=== PATIENT | male | born 1955 | race Caucasian/White ===

== ENCOUNTER 2019-12-23 21:31 | Inpatient (IN) | payer OTHER, SELFPAY ==
--- NOTE | 2019-12-23 21:37 | XR_ITS ---
WS: [id number] XR chest 1V portable [id number] REASON FOR EXAM: cp FINDINGS: Bullous emphysematous changes are noted bilaterally. There is no pneumothorax seen. The heart is not enlarged there is arteriosclerotic changes present. There is no pneumonia, congestive heart failure, pleural effusion, pulmonary edema. 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
--- NOTE | 2019-12-23 21:38 | ECG_ITS ---
Measurements Intervals [place] Rate: 83 P: 51 MO: 156 QRS: -66 QRSD: 113 T: 118 QT: 363 QTc: 428 SINUS RHYTHM WITH SINUS ARRHYTHMIA PATTERN CONSISTENT WITH PULMONARY DISEASE INCOMPLETE RIGHT BUNDLE BRANCH BLOCK [90+ ms QRS DURATION, TERMINAL R IN V1/V2, 4 40+ ms S IN I/aVL/V4/V5/V6] LEFT ANTERIOR FASCICULAR BLOCK [QRS AXIS <= -45, QR IN I, RS IN II] SEPTAL MYOCARDIAL INFARCTION , OF INDETERMINATE AGE [40+ ms Q WAVE IN V1/V2] MODERATE T-WAVE ABNORMALITY, CONSIDER LATERAL ISCHEMIA [-0.1+ mV T WAVE IN I/ I/aVL/V5/V6] No previous ECG available for comparison Electronically Signed On 12-24-2019 17:03:33 CDT by Petar Chow M.D. [email or web address]
[2019-12-23 21:40] VITALS: BP 156/86; PULSE 112; RESP 22; TEMP 36.4; O2SAT 96; BMI 23.7
[2019-12-23 21:51] LABS: Basophils # 0.1 10^3/uL (0.0-0.1); Basophils % 0.8 %; Eosinophils # 0.3 10^3/uL (0.0-0.8); Eosinophils % 3.7 %; Hematocrit 47.6 % (42.0-52.0); Hemoglobin 15.6 g/dL (11.7-16.6); Lymphocytes # 2.4 10^3/uL (0.8-4.8); Lymphocytes % 26.3 %; Mean Corpuscular HGB Conc 32.8 g/dL (30.0-36.0); Mean Corpuscular Hemoglobin 32.8 pg (28.0-34.0); Mean Corpuscular Volume 100.2 fL (80-94); Mean Platelet Volume 10.3 fL (7.4-10.4); Monocytes # 0.8 10^3/uL (0.2-0.9); Neutrophils # 5.4 10^3/uL (1.8-7.7); Nucleated Red Blood Cells % 0 %; Platelet Count 276 10^3/cmm (130-400); Red Blood Count 4.75 10^6/uL (4.1-5.3); Red Cell Distribution Width 13.8 % (12.1-15.1)
[2019-12-23 22:00] LABS: INR 0.85 (0.8-1.2)
--- NOTE | 2019-12-23 22:00 | PC.NURSE ---
Patient is now pain free, notified alright to hold nitro unless pain comes back.
[2019-12-23 22:01] LABS: Partial Thromboplastin Time 25.7 SECONDS (23.9-36.7)
[2019-12-23 22:12] LABS: Troponin(5th) Baseline 65 ng/mL (0-15)
[2019-12-23 22:16] LABS: Alanine Aminotransferase 14 U/L (0-41); Albumin Level 4.4 g/dL (3.5-5.2); Alkaline Phosphatase 80 IU/L (40-130); Anion Gap 18.6 (5-19); Aspartate Amino Transferase 20 U/L (0-40); Blood Urea Nitrogen 26 mg/dL (8-23); Calcium 8.9 mg/dL (8.5-10.5); Carbon Dioxide 23 mmol/L (22-29); Chloride 98 mmol/L (98-107); Globulin 2.9 g/dL (1.3-4.6); Glomerular Filtration Rate 55.8 mL/min (90-130); Glucose 128 mg/dL (65-115); NT Pro B Type Natriuretic Pept 424 pg/mL (0-125); Osmolality Calculated 279 mOsm/kg (285-295); Potassium 4.6 mmol/L (3.5-5.1); Sodium 135 mmol/L (136-145); Total Bilirubin 0.3 mg/dL (0.15-1.2); Total Protein 7.3 g/dL (6.6-8.7)
[2019-12-23] MEDS: aspirin 325 mg Tablet PO (22:27)
[2019-12-24] VITALS (7 sets, daily range): BP systolic 104–126; BP diastolic 54–72; PULSE 16–81; RESP 11–74; TEMP 36.6–36.8; O2SAT 92–99
[2019-12-24 00:12] LABS: Troponin 5 2HR 98.46 ng/mL (0-15)
[2019-12-24 00:16] LABS: Troponin 5 2HR Delta 33.46 ABS# (0-10)
--- NOTE | 2019-12-24 00:19 | PC.NURSE ---
lab called critical 2 hour trop 98.46; 2 hour delta 33.46. notified dr. freeman
--- NOTE | 2019-12-24 00:58 | W.ED.CHESTPA ---
HPI - Chest Pain General: Chief Complaint: Chest Pain Stated Complaint: cp/high bp Time Seen by Provider: 12/23/19 21:35 History of Present Illness: HPI narrative: 64-year-old male with a distant history of coronary artery disease. He had an angioplasty at age 40. He also has diabetes. He presents with an episode of epigastric/right sided chest discomfort at home this evening. He thought it was indigestion, and took Gaviscon, which did not seem to improve his discomfort. He was mildly nauseated and diaphoretic. He was not significantly short of breath, but did complain of some mild shortness of breath. He still having some discomfort. MD complaint: chest pain and chest discomfort Onset (ago): hour(s) Timing of current episode: constant Prior episodes: Yes Onset: during rest Pain location: substernal and right chest Pain radiation: right arm Severity: moderate Quality: aching, heaviness and fullness Relieving factors: nothing Exacerbating factors: nothing Associated symptoms: Reports diaphoresis, dyspnea and nausea; Deny fever(s), leg edema, palpitations or vomiting Review of Systems Const: Reports: diaphoresis; Denies: fever(s) Eyes: Denies: change in vision or blurry vision ENMT: Denies: swelling of lips/tongue, post nasal drip or sinus pain Card: Reports: chest pain; Denies: palpitations, irregular heart rhythm, swelling of feet/ankles, dyspnea on exertion or orthopnea Resp: Reports: dyspnea; Denies: productive cough, non-productive cough or wheezing GI: Reports: nausea; Denies: vomiting : Denies: difficulty urinating, urinary urgency or hematuria Musc: Denies: neck pain, back pain, joint redness or joint warmth Skin/Breast: Denies: rash, pruritus or erythema Neuro: Denies: headache(s), dizziness or vertigo Psych: Denies: anxiety PFSH ED PFSH: Social History Smoking and tobacco status: current every day smoker Physical Exam Const: GENERAL APPEARANCE: well developed ORIENTATION/CONSCIOUSNESS: Yes oriented to person, Yes oriented to place and Yes oriented to time HENMT: COMMON NORMALS: normocephalic, external ears normal and Normal external nose present HEAD & SCALP: normocephalic FACE & SINUS: normal facial exam NOSE: Normal external nose present and No nasal discharge present EXTERNAL EAR: Yes external ears normal MOUTH: tongue normal Eye: COMMON NORMALS: Equal, round and reactive pupils present, EOMs intact bilaterally and conjunctivae normal EYELID: eyelids normal CONJUNCTIVA: Yes conjunctivae normal PUPIL: Yes Equal, round and reactive pupils present Neck/C-Spine: GENERAL: No tracheal deviation Chest: COMMONS NORMALS: normal inspection of the chest CHEST: No tenderness Resp: COMMON NORMALS: clear to auscultation bilaterally EFFORT & INSPECTION: No tachypneic, No respiratory distress, No retractions, No uses accessory muscles and No tracheal deviation AUSCULTATION: clear to auscultation bilaterally, no rhonchi, no wheezes and lung sounds not diminished Cardio: COMMON NORMALS: regular rate and regular rhythm RATE: regular rate RHYTHM: regular rhythm HEART SOUNDS: no murmurs PERIPHERAL PULSES: radial pulses present GI: INSPECTION: No abdominal distension AUSCULTATION: No Hyperactive bowel sounds present and No Hypoactive bowel sounds present PALPATION: No Guarding due to palpation present (GI) and No Rigid due to palpation PERCUSSION: no dullness to percussion and no tympanic to percussion Neuro: SENSORIUM/ORIENTATION: Yes oriented to person, Yes oriented to place and Yes oriented to time Psych: COMMON NORMALS: mental status grossly normal Skin: COMMON NORMALS: no rashes or lesions noted GENERAL SKIN EXAM: no rashes or lesions noted Course Vital Signs: Vital signs: Vital Signs Temperature 97.5 F L 12/23/19 21:40 Pulse Rate 112 H 12/23/19 21:40 Respiratory Rate 22 H 12/23/19 21:40 Blood Pressure 156/86 12/23/19 21:40 Pulse Oximetry 96 12/23/19 21:40 MDM - Chest Pain MDM Narrative: Medical decision making narrative: 64-year-old male with chest discomfort, mainly right side, which he says he experienced at age 40 with his heart attack. His EKG shows a sinus rhythm with incomplete right bundle branch block, Q wave in lead II, no other acute ST changes. His first troponin was mildly elevated, and second 1 increased to 100. His other laboratory is benign, save him mild elevation in creatinine at 1.3. He is received aspirin, Lovenox and Plavix. He was going to be given a nitroglycerin, but his pain resolved prior to the nitroglycerin being taken. Lab Data: Labs: Lab Results 12/23/19 12/23/19 12/23/19 Range/Units 21:45 21:45 21:45 WBC 9.0 (4.0-10.0) 10^3/ uL RBC 4.75 (4.1-5.3) 10^6/u L Hgb 15.6 (11.7-16.6) g/dL Hct 47.6 (42.0-52.0) % MCV 100.2 H (80-94) fL MCH 32.8 (28.0-34.0) pg MCHC 32.8 (30.0-36.0) g/dL RDW 13.8 (12.1-15.1) % Plt Count 276 (130-400) 10^3/c mm MPV 10.3 (7.4-10.4) fL Neut % (Auto) 60.0 % Lymph % (Auto) 26.3 % [place] % (Auto) 9.0 % Eos % (Auto) 3.7 % Baso % (Auto) 0.8 % Neut # (Auto) 5.4 (1.8-7.7) 10^3/u L Lymph # (Auto) 2.4 (0.8-4.8) 10^3/u L [place] # (Auto) 0.8 (0.2-0.9) 10^3/u L Eos # (Auto) 0.3 (0.0-0.8) 10^3/u L Baso # (Auto) 0.1 (0.0-0.1) 10^3/u L Nucleated RBC % (a uto) 0 % Nucleated RBCs # 0.0 /100WBC PT 11.90 (10.5-13.3) SECO NDS INR 0.85 (0.8-1.2) APTT 25.7 (23.9-36.7) SECO NDS Sodium 135 L (136-145) mmol/L Potassium 4.6 (3.5-5.1) mmol/L Chloride 98 (98-107) mmol/L Carbon Dioxide 23 (22-29) mmol/L Anion Gap 18.6 (5-19) BUN 26 H (8-23) mg/dL Creatinine 1.3 H (0.7-1.2) mg/dL GFR Calculation 55.8 L (90-130) mL/min Glucose 128 H (65-115) mg/dL Calculated Osmolal ity 279 L (285-295) mOsm/k g Calcium 8.9 (8.5-10.5) mg/dL Total Bilirubin 0.3 (0.15-1.2) mg/dL AST 20 (0-40) U/L ALT 14 (0-41) U/L Alkaline Phosphata se 80 (40-130) IU/L Troponin T Baselin e (0-15) ng/mL Troponin T 120 [place] (0-15) ng/mL Delta Troponin T (0-10) ABS# NT-Pro-B Natriuret Pep 424 H (0-125) pg/mL Total Protein 7.3 (6.6-8.7) g/dL Albumin 4.4 (3.5-5.2) g/dL Globulin 2.9 (1.3-4.6) g/dL 12/23/19 12/23/19 Range/Units 21:45 23:28 WBC (4.0-10.0) 10^3/ uL RBC (4.1-5.3) 10^6/u L Hgb (11.7-16.6) g/dL Hct (42.0-52.0) % MCV (80-94) fL MCH (28.0-34.0) pg MCHC (30.0-36.0) g/dL RDW (12.1-15.1) % Plt Count (130-400) 10^3/c mm MPV (7.4-10.4) fL Neut % (Auto) % Lymph % (Auto) % [place] % (Auto) % Eos % (Auto) % Baso % (Auto) % Neut # (Auto) (1.8-7.7) 10^3/u L Lymph # (Auto) (0.8-4.8) 10^3/u L [place] # (Auto) (0.2-0.9) 10^3/u L Eos # (Auto) (0.0-0.8) 10^3/u L Baso # (Auto) (0.0-0.1) 10^3/u L Nucleated RBC % (a uto) % Nucleated RBCs # /100WBC PT (10.5-13.3) SECO NDS INR (0.8-1.2) APTT (23.9-36.7) SECO NDS Sodium (136-145) mmol/L Potassium (3.5-5.1) mmol/L Chloride (98-107) mmol/L Carbon Dioxide (22-29) mmol/L Anion Gap (5-19) BUN (8-23) mg/dL Creatinine (0.7-1.2) mg/dL GFR Calculation (90-130) mL/min Glucose (65-115) mg/dL Calculated Osmolal ity (285-295) mOsm/k g Calcium (8.5-10.5) mg/dL Total Bilirubin (0.15-1.2) mg/dL AST (0-40) U/L ALT (0-41) U/L Alkaline Phosphata se (40-130) IU/L Troponin T Baselin e 65 H (0-15) ng/mL Troponin T 120 [place] 98.46 H (0-15) ng/mL Delta Troponin T 33.46 H* (0-10) ABS# NT-Pro-B Natriuret Pep (0-125) pg/mL Total Protein (6.6-8.7) g/dL Albumin (3.5-5.2) g/dL Globulin (1.3-4.6) g/dL Discharge Plan Discharge Patient Disposition: Placed in Observation Clinical Impression: Chest pain Qualifiers: Chest pain type: chest pain due to myocardial ischemia Ischemic chest pain type: unstable angina pectoris Qualified Code(s): I20.0 - Unstable angina Condition: Stable Referrals: Akiko Arnada PA [Primary Care Provider] - Coding Level of Care Code ED Supervisor [employer] for [facility] Fwd Exam Comprehensive
--- NOTE | 2019-12-24 01:00 | P.HP_ITS ---
Providers/Chief Complaint Primary Care Provider: Akiko Aranda Chief Complaint: cp/high bp History of Present Illness Jayden Baldwin is a 64 year old male who carries diagnosis of dyslipidemia, type 2 diabetes, came in with chief complaint of chest pain. Patient stated that at age 40 he had an OR, he kept driving for straight 10 days and started experiencing excruciating pressure-like chest discomfort, angiogram showed normal coronary vessels, he was put on Coumadin. He took Coumadin until he stopped 2 years ago. Recently he saw Dr. Chow to establish care, he started him on atorvastatin, stopped his Coumadin and initiated aspirin. Patient is stating that for last 2 to 3 weeks he has been experiencing epigastric discomfor t, this discomfort is more like burning sensation which would radiate towards his right shoulder, mostly happened at rest initially until today. He was sitting in his couch today when he started experiencing substernal chest discomfort which he would describe as pressure-like sensation radiating towards his right shoulder, he experienced diaphoresis without any nausea, vomiting or shortness of breath. He did not notice any fevers, chills, dysuria, diarrhea. He is denying orthopnea, PND, palpitations. 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 Diagnostics in the ER revealed normal hemodynamics with tachycardia, normal room air saturation Significant delta troponin, he is chest pain-free JEAN Lovenox full dose 1 dose given in the ER along loading dose of aspirin and Allison vix EKG showing flat T waves anterolateral leads, bifascicular block with T wave inversions in lead I aVL Review of Systems Const: Denies: fever(s), chills, body aches or fatigue Eyes: Denies: change in vision ENMT: Denies: throat pain Card: Reports: chest pain; Denies: palpitations, irregular heart rhythm, swelling of feet/ankles, dyspnea on exertion, orthopnea or leg pain with exertion Resp: Denies: dyspnea GI: Denies: abdominal pain or nausea : Denies: flank pain Musc: Denies: neck pain Skin/Breast: Denies: rash Neuro: Denies: headache(s) Psych: Denies: anxiety Endo: Denies: polyuria [place]/Lymph: Denies: easy bruising All/Imm: Denies: urticaria Medications/Allergies Allergies Allergy/AdvReac Type Severity Reaction Status Date / Time No Known Allergies Allergy Verified 12/23/19 21:39 PFSH Acute PFSH: Medical History (Updated 12/24/19 @ 01:49 by Adalgisa Washington MD) Dyslipidemia Smoker Smoker Type 2 diabetes mellitus Surgical History (Updated 12/24/19 @ 01:49 by Adalgisa Washington MD) H/O shoulder surgery H/O skin graft Family History (Updated 12/24/19 @ 01:49 by Adalgisa Washington MD) Denies family history of Hyperlipidemia Lung disease Hypertension Social History (Updated 12/24/19 @ 01:50 by Adalgisa Washington MD) Smoking and tobacco status: heavy tobacco smoker cigarettes [ Other cigarette details: 1.5 pack per day for last 40 years ] Alcohol intake: current Alcohol use comment: Occasional use of alcohol 2-3 drinks a week Substance/Drug Use: never Household members: significant other Housing: House Current occupational status: employed 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 Vitals/I&O/Wt Last Vital Signs Temp 97.5 F L 12/23/19 21:40 Pulse 112 H 12/23/19 21:40 Resp 22 H 12/23/19 21:40 BP 156/86 12/23/19 21:40 Pulse Ox 96 12/23/19 21:40 Weight last 48 hrs Weight 79.379 kg Physical Exam Narrative: EXAM NARRATIVE: Head to toe examination Patient sitting in his bed without any active discomfort saturating well on room air Normal hemodynamics S1, S2, mild signs of congestive heart failure with trace pedal edema Mild expiratory wheeze at the base otherwise lung auscultation is normal without adventitious sounds Skin grafting around hands and shoulder Abdomen soft nontender nondistended bowels are present Awake alert oriented x3 GCS 15 Neurologically nonfocal exam No active chest pain trace lower extremity edema EOMI, PERRLA Appropriate mood and affect Data : 12/23/19 21:45 12/23/19 21:45 A&P Assessment and plan (1) NSTEMI (non-ST elevated myocardial infarction): Status: Acute (2) Smoker: Status: Acute (3) JEAN (acute kidney injury): Status: Acute Additional A&P Information Nstemi Multiple risk factors of coronary disease, diabetes, dyslipidemia, age OR at age 40, without any history of CABG or stent placement, he was taken off Coumadin 2 years ago EKG showing T wave inversions lead I aVL, significant delta troponin ACS protocol, Lovenox full dose, patient has received aspirin and Plavix loading dose in the ER, Would continue aspirin, Plavix, Lovenox along high-dose statins, start lisinopril if creatinine is improving Get echo in the morning He will most likely need an angiogram Check TSH, lipid panel, drug screen To rule out PE will get d-dimer, would avoid giving contrast study now in case he goes for an angiogram next 48 hours JEAN with trace pedal edema BNP 424 Mild signs of CHF probably causing cardiorenal JEAN No significant fluid overload on clinical exam Hold Bunny Type 2 diabetes: Moderate sliding scale [id number] smoking history Counseled on smoking station and benefits on his health, patient stated understanding Full code No need of DVT prophylaxis as he is getting Lovenox full dose, Consistent carb diet Attestations Medical Necessity Statement*: Anticipating stay in the hospital cross more than 2 midnights currently needs management of non-ST segment elevation OR Time Spent in Patient Care: 50 Coding Level of Care Code Acute Health And Fitness Professor for edyta Adam Diagnoses NSTEMI (non-ST elevated myocardial infarction) I21.4 Smoker F17.200 JEAN (acute kidney injury) N17.9
--- NOTE | 2019-12-24 01:30 | PC.NURSE ---
Patient arrieved from ER via wheelchair. Patient ambulated from the bed with no assistance and Alert x3. Patient placed on telemetry and vitals obtained.
--- NOTE | 2019-12-24 01:37 | USCV_ITS ---
Jayden Baldwin Age: 64 Gender: M : 1955 Exam Date: 12/24/2019 07:28 Ordering Phys: Adalgisa Washington MD Technologist: Elizabeth Marie Exam Location: [facility] [place] Indication: NSTEMI BP: 110 / 61 HR: 68 Rhythm: Sinus Technical Quality: Adequate MEASUREMENTS (Male / Female) Normal Values 2D ECHO LV Diastolic Diameter PLAX 4.2 cm 4.2 - 5.9 / 3.9 - 5.3 cm LV Systolic Diameter PLAX 4.0 cm LV Chamber Size 5.3 cm IVS Diastolic Thickness 1.5 cm 0.6 - 1.0 / 0.6 - 0.9 cm IVS Systolic Thickness 1.2 cm LVPW Diastolic Thickness 2.6 cm 0.6 - 1.0 / 0.6 - 0.9 cm LVPW Systolic Thickness 2.2 cm RV Chamber Size 3.9 cm LVOT Diameter 2.1 cm LV Ejection Fraction 2D Teich 14.5 % LV Ejection Fraction MOD 2C 32.1 % LV Ejection Fraction 2C AL 32.8 % LA Diameter 5.1 cm LA Width 2.9 cm LA Height 4.8 cm RA Width 2.7 cm RA Height 3.9 cm M-MODE LV Diastolic Diameter MM 6.4 cm 4.2 - 5.9 / 3.9 - 5.3 cm LV Systolic Diameter MM 4.9 cm LV Ejection Fraction MM Teich 46.9 % IVS Diastolic Thickness MM 1.4 cm 0.6 - 1.0 / 0.6 - 0.9 cm IVS Systolic Thickness MM 1.8 cm LVPW Diastolic Thickness MM 0.9 cm 0.6 - 1.0 / 0.6 - 0.9 cm LVPW Systolic Thickness MM 1.2 cm Aortic Annulus Diameter 3.3 cm LA Ao Ratio MM 1.5 MV E Point Septal Separation 1.7 cm DOPPLER AV Peak Velocity 136.0 cm/s LVOT Peak Velocity 99.0 cm/s AV Area Cont Eq vti 2.5 cm squared AV Area Cont Eq pk 2.5 cm squared MV Area PHT 2.6 cm squared Mitral E to A Ratio 0.6 MV E' Velocity 6.0 cm/s Mitral E to MV E' Ratio 10.7 Mitral E to LV E' Lateral Ratio 10.7 Mitral E to LV E' Septal Ratio 10.7 TR Peak Velocity 254.0 cm/s TR Peak Gradient 25.8 mmHg TR Mean Velocity 149.3 cm/s TR Mean Gradient 9.7 mmHg TR Velocity Time Integral 61.0 cm TV Peak E Velocity 53.0 cm/s Right Atrial Pressure 3.0 mmHg Pulmonary Artery Systolic Pressu 28.8 mmHg PV Peak Velocity 68.0 cm/s RV Acceleration Time 0.2 s RV Ejection Time 0.3 s RV AcT/ET 0.5 FINDINGS Left Ventricle Normal left ventricular cavity size. Moderately decreased left ventricular systolic function. Left ventricular ejection fraction is estimated at 46 %. There is distal anterior and apical wall hypokinesis Grade I/IV diastolic dysfunction (abnormal relaxation filling pattern), normal to mildly elevated filling pressures. Right Ventricle The right ventricle is normal in size and function. Right Atrium The right atrium is normal in size. Left Atrium The left atrium is normal in size. Mitral Valve Structurally normal mitral valve without significant stenosis or prolapse. There is no mitral regurgitation. Aortic Valve Structurally normal aortic valve without significant sclerosis or stenosis. There is no aortic regurgitation. Tricuspid Valve Structurally normal tricuspid valve without significant stenosis or regurgitation. Pulmonary artery systolic pressure is normal. Pulmonic Valve Structurally normal pulmonic valve without significant stenosis. There is no pulmonic regurgitation. Pericardium Normal pericardium without effusion. Aorta Normal ascending aorta dimension. CONCLUSIONS 1-Normal left ventricular cavity size. Moderately decreased left ventricular systolic function. Left ventricular ejection fraction is estimated at 46 %. There is mid to distal anterior and apical wall hypokinesis. Grade I/IV diastolic dysfunction (abnormal relaxation filling pattern), normal to mildly elevated filling pressures. 2-There is no pericardial effusion. 3-No significant valve abnormalities. 4-Pulmonary artery systolic pressure is within normal limits. 5-Right atrial pressure is around 5 mm of mercury. 6-No significant change since the prior echocardiogram study of 12/22/2018. Adalgisa Chavez MD (Electronically Signed) Final Date: 24 December 2019 17:23 S
[2019-12-24 02:12] LABS: D Dimer 0.52 ug/mIFEU (0-0.59)
[2019-12-24 02:27] LABS: Chol HDL Ratio 3.61 mg/dL (1.0-5.00); Cholesterol 130 mg/dL (0-200); HDL Cholesterol 36 mg/dL (60-100); LDL Cholesterol Calculated 64 mg/dL (50-129); LDL HDL Ratio 1.78 RATIO (0.00-3.22); Thyroid Stimulating Hormone 2.13 uIU/mL (0.27-4.20); Triglycerides 150 mg/dL (0-150)
[2019-12-24 02:38] LABS: Amphetamines Screen Urine Negative (Negative); Barbiturates Screen Urine Negative (Negative); Benzodiazepines Screen Urine Negative (Negative); Cocaine Screen Urine Negative (Negative); Opiate Screen Urine Negative (Negative); PCP Screen Urine Negative (Negative); THC Screen Urine Negative (Negative)
[2019-12-24 03:03] LABS: Estmated Average Glucose 160; Hemoglobin A1C 7.2 % (4.0-6.0)
[2019-12-24 05:14] LABS: Basophils # 0.1 10^3/uL (0.0-0.1); Basophils % 0.7 %; Eosinophils # 0.4 10^3/uL (0.0-0.8); Eosinophils % 4.7 %; Hematocrit 43.7 % (42.0-52.0); Hemoglobin 14.3 g/dL (11.7-16.6); Lymphocytes # 2.3 10^3/uL (0.8-4.8); Lymphocytes % 30.9 %; Mean Corpuscular HGB Conc 32.7 g/dL (30.0-36.0); Mean Corpuscular Hemoglobin 32.4 pg (28.0-34.0); Mean Corpuscular Volume 98.9 fL (80-94); Mean Platelet Volume 10.5 fL (7.4-10.4); Monocytes # 0.6 10^3/uL (0.2-0.9); Monocytes % 8.5 %; Neutrophils # 4.1 10^3/uL (1.8-7.7); Neutrophils % 55.1 %; Nucleated Red Blood Cells % 0 %; Platelet Count 244 10^3/cmm (130-400); Red Blood Count 4.42 10^6/uL (4.1-5.3); Red Cell Distribution Width 13.7 % (12.1-15.1); White Blood Count 7.5 10^3/uL (4.0-10.0)
[2019-12-24 05:36] LABS: Blood Urea Nitrogen 31 mg/dL (8-23); Calcium 9.3 mg/dL (8.5-10.5); Carbon Dioxide 26 mmol/L (22-29); Chloride 101 mmol/L (98-107); Glomerular Filtration Rate 75.5 mL/min (90-130); Glucose 112 mg/dL (65-115); Osmolality Calculated 284 mOsm/kg (285-295); Sodium 138 mmol/L (136-145)
--- NOTE | 2019-12-24 06:04 | PC.NURSE ---
End of shift: Patient had a uneventful shift. Remains AxO x3 and no complaints of chest pain so far.
[2019-12-24 06:08] LABS: Glucose Point of Care 112 mg/dL (70-110)
--- NOTE | 2019-12-24 09:10 | PC.NURSE ---
Med rec obtained from patient. Patient reports taking 40 MG Atorvastatin daily. 0900 dose of 80 mg Atorvastatin clarified with Dr. Suazo. Physician instructed nurse to only administer 40 mg. Physician to change order.
[2019-12-24] MEDS: metoprolol succinate ER (24 HR) 25 mg Tablet 12.5 MG PO (09:15)
[2019-12-24] MEDS: clopidogrel 75 mg Tablet PO (09:20)
[2019-12-24] MEDS: aspirin 81 mg EC Tablet PO (09:20)
[2019-12-24] MEDS: enoxaparin 80 mg/0.8 mL Syringe SUBCUT ×2 (09:22→20:42)
[2019-12-24] MEDS: atorvastatin 40 mg Tablet PO (09:31)
[2019-12-24] MEDS: pneumococcal (23 valent) SDV 0.5 mL IM (09:32)
--- NOTE | 2019-12-24 09:58 | PC.CHAP ---
Pastoral Care Encounter/Spiritual Assessment Type of Contact [] Declined sheepskin pickler visit [] Patient/Family/Request visit [] Outpatient visit [] Follow-up visit [] Physician referral [] Code/Alert [x] Routine visit [] Staff referral [] Actively dying [] Patient sleeping [] Family support [] [] Out of room [] Palliative care [] [] Receiving care in room [] Pre-surgical visit [] Trauma [] Long length of stay [] ICU visit [] Other: Relational/Emotional Strength [] Patient feels connected with others/family/visitors/staff [] Distress [] Loneliness/isolation [] Abandonment Spirituality of Patient [] Person of Marialuisa [] Attends Zoroastrian of their Marialuisa [] Believes in Prayer [] Reads Bible or Sikh materials [] There are Spiritual issues to be addressed Traffic Sergeant Interventions [x] Prayer [] Active listening [] Non-anxious presence [] Spiritual/emotional support [] Crisis/trauma care [] Spiritual counseling [] Bereavement support [] Provided bereavement packet [] Provided Bible/devotional materials [] Provided toy/stuffed animal, coloring book to patient or family member [] Provided Communion [] Anointing/[facility] [] Salvation [x] Completed spiritual assessment [] Other: Impact on Illness or Injury [] Angry [] Fearful [] Anxious [] Often cries [] Exhaustion [] Unable to work [] Unable to attend protestant [] Unable to walk/stand [] Unable to read [] Unable to drive [] Unable to eat/drink [] Unable to sleep [] Unable to be with family [] Patient intubated [] Other: Summary Patient resting well. Patient enjoying breakfast Time spent with patient 10min
--- NOTE | 2019-12-24 10:51 | P.CONIM_ITS ---
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 After initial treatment for ACS chest pain resolved. According to the patient for the past few months he has been struggling with worsening of shortness of breath and heartburn-like symptoms. He did not pay much attention to it however when yesterday it became more constant and he experienced diaphoresis his girlfriend suggested him to come to the ER. Twelve-lead EKG was suggestive of incomplete right bundle branch block. Delta troponin was 33 points high with 6-hour troponin in 90s. Patient in the past has seen Dr. Petar Chow once nearly 1 year ago. According to him he has not followed up with Dr. Keller regularly and would like me to see him and take care of him he was given the choice that he can be transferred to Dr. Keller service. Currently he denies PND orthopnea presyncope or syncope. Meds/Allergies Home Medications and Allergies Home Medications Medication Instructions Recorded Confirmed Last Taken Type Trulicity SUBCUT DIRECTED 12/24/19 Unknown History aspirin 325 mg PO DAILY 12/24/19 12/24/19 Unknown History atorvastatin 40 mg PO QPM 12/24/19 12/24/19 Unknown History empagliflozin [Jardiance] 25 mg PO DAILY 12/24/19 12/24/19 Unknown History metformin 500 mg PO BID 12/24/19 12/24/19 Unknown History pioglitazone [Actos] 30 mg PO DAILY 12/24/19 12/24/19 Unknown History Allergies Allergy/AdvReac Type Severity Reaction Status Date / Time No Known Allergies Allergy Verified 12/23/19 21:39 Current Medications Current Medications Generic Name Dose Route Start Last Admin Trade Name Freq PRN Reason Stop Dose Admin Aspirin 81 mg 12/24/19 09:00 12/24/19 09:20 Aspirin Ec PO 81 mg DAILY CLAUDETTE Administration Atorvastatin Calcium 40 mg 12/24/19 09:30 12/24/19 09:31 Lipitor PO 40 mg DAILY CLAUDETTE Administration Clopidogrel Bisulfate 75 mg 12/24/19 09:00 12/24/19 09:20 Plavix PO 75 mg DAILY CLAUDETTE Administration Enoxaparin Sodium 80 mg 12/24/19 09:30 12/24/19 09:22 Lovenox SUBCUT 80 mg Q12H CLAUDETTE Administration Insulin Aspart 0 unit 12/24/19 08:00 12/24/19 08:06 Novolog SUBCUT Not Given WM&BEDTIME CLAUDETTE Protocol Metoprolol Succinate 12.5 mg 12/24/19 09:00 12/24/19 09:15 Toprol Xl PO 12.5 mg DAILY CLAUDETTE Administration PFSH Acute PFSH: Medical History (Updated 12/24/19 @ 11:59 by Adalgisa Chavez MD) Dyslipidemia Smoker Smoker Type 2 diabetes mellitus Surgical History H/O shoulder surgery H/O skin graft Family History Denies family history of Hyperlipidemia Lung disease Hypertension Social History Smoking and tobacco status: heavy tobacco smoker cigarettes [ Other cigarette details: 1.5 pack per day for last 40 years ] Alcohol intake: current Alcohol use comment: Occasional use of alcohol 2-3 drinks a week Substance/Drug Use: never Household members: significant other Housing: House Current occupational status: employed 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 NECK: No jugular vein distension. HEENT: No cyanosis. No icterus. No pallor. HEART: Regular S1 and S2. No murmur, rub or gallop. LUNGS: Mild crackles in the lower lobe bilaterally. ABDOMEN: Soft, nontender and nondistended. Positive bowel sounds. No guarding, rebound or tenderness. CENTRAL NERVOUS SYSTEM: Grossly nonfocal. EXTREMITIES: Lower extremities without edema bilaterally. Data Labs: Other Labs: Incomplete right bundle branch block. A&P Assessment and plan (1) NSTEMI (non-ST elevated myocardial infarction): Patient is high risk for acute coronary syndrome. His chest pain and initial cardiac markers are suggestive of non-ST elevation GA. We will therefore proceed with coronary angiogram tomorrow since he is stable. Continue aspirin statin beta-nirav and Plavix. Continue anticoagulation. Patient has been explained all risk benefit and alternative for the procedure. He would like to proceed with it. Will also obtain echocardiogram to assess LV function. Status: Acute (2) Smoker: Advised to quit smoking Status: Acute (3) Dyslipidemia: Patient is on statin, we will continue medicine Status: Acute (4) JEAN (acute kidney injury): Continue gentle hydration. Status: Acute Coding Level of Care Code New Pt Acute Client Service Supervisor for g Fwd Patient Type New History Detailed Exam Detailed Medical Decision Making Moderate Complexity Diagnoses NSTEMI (non-ST elevated myocardial infarction) I21.4 Smoker F17.200 Dyslipidemia E78.5 JEAN (acute kidney injury) N17.9
--- NOTE | 2019-12-24 10:53 | P.PN_ITS ---
Subjective Subjective: Interval history: His original pain episode has resolved. He is feeling better today. Has been having on and off pain for the last several weeks, but last night episode was the worst he has had. Denies association with movement. Denies cough. Denies changes with breathing. Reports initially thought maybe was some heartburn, but took Gaviscon and says normally this takes care of the heartburn, however, this pain did not respond at all. Vitals/I&O/Wt Last Vital Signs Temp 97.9 F 12/24/19 07:17 Pulse 81 12/24/19 07:17 Resp 28 H 12/24/19 07:17 BP 108/63 12/24/19 07:17 Pulse Ox 99 12/24/19 07:17 12/23/19 12/24/19 12/24/19 22:59 06:59 14:59 Intake Total 360 / 360 Output Total 350 / 350 1100 / 1100 Balance -350 / -350 -740 / -740 Weight last 48 hrs Weight 79.379 kg Physical Exam Const: COMMON NORMALS: no acute distress and patient oriented x3 OTHER: Pleasant, conversant. HENMT: COMMON NORMALS: oropharynx normal Neck/C-Spine: COMMON NORMALS: no JVD Resp: COMMON NORMALS: normal respiratory effort and clear to auscultation bilaterally AUSCULTATION: clear to auscultation bilaterally Cardio: COMMON NORMALS: no JVD, regular rhythm, S1 normal heart sound present, S2 normal heart sound present and No murmurs present (Cardio) RHYTHM: regular rhythm HEART SOUNDS: S1 normal heart sound present and S2 normal heart sound present GI: COMMON NORMALS: Normal to inspection, nondistended, normoactive bowel sounds present, Soft to palpation and non-tender PALPATION: Yes Soft to palpation Extremity: COMMON NORMALS: no joint enlargement and no pedal edema Neuro: COMMON NORMALS: patient oriented x3 and moves all extremities Skin: COMMON NORMALS: no rashes or lesions noted GENERAL SKIN EXAM: no rashes or lesions noted Data : 12/24/19 04:49 12/24/19 04:49 A&P Assessment and plan (1) NSTEMI (non-ST elevated myocardial infarction): Chest pain currently is gone, however, on and off episodes over the last several weeks, with the worst one last night lasting several hours. Not related to movement, breathing, thought may be heartburn, but was not at all improved by Gaviscon. Multiple coronary disease risk factors including current smoker. Troponin with significant delta up to 98 on 2-hour study. Will be seen by cardiology with regards to assessment for non-STEMI and likely progression of coronary disease. Reports he had an angiogram at age 40 at which time already required PTCA, although no stents were placed. TTE pending. Continue aspirin, beta-nirav, statin, Plavix, received loading dose last night. Continue Lovenox. Status: Acute (2) Smoker: Continue to encourage cessation. [id number] history. Status: Acute (3) JEAN (acute kidney injury): Improved. Creatinine down to 1. With comorbidities can suspect diabetic nephropathy. On admission some concern for cardiorenal syndrome. Status: Acute Additional A&P Information Type 2 diabetes: Moderate sliding scale Attestations Medical Necessity Statement*: Continue admission for assessment management of non-STEMI Coding Level of Care Code Acute Explosive Specialist for [facility] Fwd Diagnoses NSTEMI (non-ST elevated myocardial infarction) I21.4 Smoker F17.200 JEAN (acute kidney injury) N17.9
[2019-12-24 11:10] LABS: Glucose Point of Care 119 mg/dL (70-110)
[2019-12-24 16:19] LABS: Glucose Point of Care 110 mg/dL (70-110)
--- NOTE | 2019-12-24 19:30 | PC.NURSE ---
Received bedside report from ALEXANDER Thomas. Patient resting in bed. Denies chest pain or pressure at this time. Discussed plan. Patient verbalized complete understanding. Patient asked as to his home medications for DM. Instructed patient on insulin sliding scale for his DM control due to not having his home medications in our formulary. Also discussed not using his metformin due to scheduled [facility] procedure scheduled for 12/24. Patient verbalized complete understanding. Patient has been prepped for procedure by FRIDA Chen.
[2019-12-24 20:18] LABS: Glucose Point of Care 161 mg/dL (70-110)
[2019-12-25] VITALS (30 sets, daily range): BP systolic 92–133; BP diastolic 48–81; PULSE 64–86; RESP 13–32; TEMP 36.3–36.7; O2SAT 91–97
[2019-12-25 03:42] LABS: Basophils # 0.1 10^3/uL (0.0-0.1); Basophils % 0.7 %; Eosinophils # 0.2 10^3/uL (0.0-0.8); Eosinophils % 2.5 %; Hematocrit 50.4 % (42.0-52.0); Hemoglobin 16.4 g/dL (11.7-16.6); Lymphocytes # 2.2 10^3/uL (0.8-4.8); Lymphocytes % 24.9 %; Mean Corpuscular HGB Conc 32.5 g/dL (30.0-36.0); Mean Corpuscular Hemoglobin 32.9 pg (28.0-34.0); Mean Platelet Volume 10.6 fL (7.4-10.4); Monocytes # 0.6 10^3/uL (0.2-0.9); Monocytes % 7.3 %; Neutrophils # 5.6 10^3/uL (1.8-7.7); Neutrophils % 64.3 %; Nucleated Red Blood Cells % 0 %; Platelet Count 255 10^3/cmm (130-400); Red Blood Count 4.99 10^6/uL (4.1-5.3); Red Cell Distribution Width 13.7 % (12.1-15.1); White Blood Count 8.6 10^3/uL (4.0-10.0)
[2019-12-25 04:11] LABS: Anion Gap 17.6 (5-19); Blood Urea Nitrogen 22 mg/dL (8-23); Calcium 9.5 mg/dL (8.5-10.5); Carbon Dioxide 26 mmol/L (22-29); Chloride 101 mmol/L (98-107); Glomerular Filtration Rate 85.2 mL/min (90-130); Glucose 91 mg/dL (65-115); Osmolality Calculated 286 mOsm/kg (285-295); Potassium 4.6 mmol/L (3.5-5.1); Sodium 140 mmol/L (136-145)
[2019-12-25 06:43] LABS: Glucose Point of Care 103 mg/dL (70-110)
--- NOTE | 2019-12-25 07:03 | PC.NURSE ---
Patient wanting to have LHC done today. Does not understand why COVID 19 testing was done. Patient wanting to leave AMA if results and LHC not done this morning. Informed Dr Chavez of patient's concerns. Dr Chavez informed RN that patient could leave if not willing to wait for results.
--- NOTE | 2019-12-25 08:30 | XACV_ITS ---
Exam Room: 1 Ht: 183 cm Wt: 79 kg BSA: 2.01 m2 Gender: Male : 1955 Any Known Allergies: No known allergies Exam Priority: Routine Indication(s): - NSTEMI - Abnormal nuclear perfusion study Procedure(s): Procedure Description: Diagnostic procedure Procedure Description: PCI procedure Procedure Description: Drug Eluting Coronary Stent Procedure Description: PTCA Procedure Description: Coronary Angiography Diagnostic Cath Status: Urgent Diagnostic Findings LM has 0% stenosis. CX has 0% stenosis. pLAD: Mild 35% stenosis, TANI: 3 flow. First Obtuse Marginal Branch Segment: Severe 85% stenosis, TANI: 3 flow. pRCA: Severe 75% stenosis, TANI: 3 flow. mRCA to dRCA: Severe 75% stenosis, TANI: 3 flow. Coronary angiography shows left dominance. PCI Status: Urgent PCI Indication: NSTE - ACS Interventional Findings First Obtuse Marginal Branch Segment: 85% stenosis treated with AB MINI TREK 2.00X8 RX BALLOON and MDJennifer Burks RADU 3.0X12 JAD. 0% residual stenosis, TANI: 3 flow. Conclusions There is severe coronary artery disease with two vessel disease. First Obtuse Marginal Branch Segment was treated with Balloon and Drug Eluting Stent. Recommendations 1-Return to inpatient for close monitoring and routine cath care 2-Risk factor modification for secondary prevention 3-Statin and aspirin 81 mg life--long, if tolerated 4-Continue Plavix 75mg p.o. daily for at least one year. We will assess at the end of one year again to continue if further or not 5-Continue optimal medical management 6-Follow up with Dr. Chavez in four weeks and your primary care in 10 days . Interventional RX Recommendation: PCI w/o planned CABG Diagnostic RX Recommendation: PCI w/o planned CABG Pressures Phase:Rest AO : 90 mmHg / 61 mmHg ( 74 mmHg ) @ 7:27:00 AM 91 mmHg / 60 mmHg ( 75 mmHg ) @ 7:29:00 AM 95 mmHg / 61 mmHg ( 77 mmHg ) @ 7:32:00 AM 91 mmHg / 59 mmHg ( 74 mmHg ) @ 7:34:00 AM 103 mmHg / 59 mmHg ( 76 mmHg ) @ 7:41:00 AM 89 mmHg / 57 mmHg ( 72 mmHg ) @ 7:55:00 AM Clinical Evaluation EBL: 5mL-10mL Procedural Details Procedure Consent Obtained. Current Diagnosis : NSTEMI. Pre-Procedure Time Out. Identified patient by full name and date of as verbalized by the patient/guarantor. Does the consent match the physician's order: Yes. Accurate & Complete Informed Consent: Yes. Inpatient/Outpatient History & Physical on Chart: Yes. If H&P is completed, is and addenduem needed: No; If yes, is the addendum complete: N/A Emergent; Informed Consent not obtained due to time critical life threat. Relevant Radiology Images available: Yes. The risks, benefits, and alternatives of sedation and/or procedure were discussed by physician. The patient agrees to continue. Procedure started. [facility] Clinical Fraility Score: 3: Managing Well. Newspaper Vendor Indications: ACS <= 24 hours. Chest Pain Symptom Assessment: Typical Angina Symptoms. Cardiovascular Instability: No. Correct patient, site and procedure confirmed by cath team. Current diagnosis: NSTEMI. PERRLA. Strong, equal hand supervisor looping bilaterally. Lungs clear x 5 lobes. IV Site on Arrival: 20 gauge in the left forearm. IV Fluids: 0.9% NaCl at KVO. 200 mL infused prior to catheterization laboratory technician. Pre Procedural Pulses: bilateral dorsalis pedis was 2+. Pre Procedural Pulses: bilateral posterior tibial was 2+. Pre Procedural Pulses: bilateral radial was 3+. Oxygen started at 2liters/min via nasal canula. right groin was prepped with chloroprep then draped in the usual sterile fashion. right radial was prepped with chloroprep then draped in the usual sterile fashion. Physician notified. Patient's family unavailable due to current Covid-19 restrictions. Equipment: 6F - Radial. Cardiac Cath Pack. ACIST Manifold Kit Model BT 2000. Heparinized Saline (2 units/mL), 1000 mL bag. Baseline sample Acquired. HR: 72 BPM. Physician arrived. Physician scrubbed in. Immediate Pre-Procedure Time Out. Correct Patient: Yes; Correct Procedure: Yes; Correct Site: N/A Correct Patient Position: Yes; Correct Supplies: Yes; Dried Flammable Prep: Yes Blood Products Available: N/A;. Lidocaine 1% infiltrated to the right radial. Arterial access obtained. A 5 danish TIG catheter in over wire. Multiple views taken of left coronary artery. Catheter redirected to the RCA. Multiple views taken of right coronary artery. Physician review of cine films. Inventory Added: [place] Guidewire. Inventory Added: Endoflator. Catheter removed over the exchange wire. 6 danish XB 3.5 guide catheter was inserted over the wire. [place] guidewire was advanced through the guide catheter to lesion in the Ostial OM. Inflation number : 1 A AB MINI TREK 2.00X8 RX BALLOON was prepped and advanced across the 1st Ob Summer , then inflated to 12 DEBRA for 0:15 seconds. Inflation number: 2 The AB MINI TREK 2.00X8 RX BALLOON was reinflated across the 1st Ob Summer, to 20 DEBRA for 0:29 seconds. Inflation number: 3 The AB MINI TREK 2.00X8 RX BALLOON was reinflated across the 1st Ob Summer, to 14 DEBRA for 0:09 seconds. Inflation number: 4 The AB MINI TREK 2.00X8 RX BALLOON was reinflated across the 1st Ob Summer, to 18 DEBRA for 0:08 seconds. Results checked. Balloon out. Inflation Number : 5 A MDT R RADU 3.0X12 JAD -Lot Number# [id number] was prepped and advanced across the 1st Ob Summer. The stent was deployed at 12 DEBRA for 0:23 seconds. Exp. 08/07/2021. Stent balloon and wire out. Guide catheter out. TR band placed. Hemostasis obtained. Post Procedure: Pulses reassessed and unchanged. PERRLA. Strong, equal hand supervisor looping bilaterally. No VTE prophylaxis required. Total IV fluids: 65 mL. Medication's Wasted: Heparin = 1000 mg. Medication's Wasted: Lidocaine 1% = 16 mL. Medication's Wasted: Nitro = 49.8 mg. A TR Band was successful obtaining hemostatsis at the Right Radial artery insertion site. PCI Indication: NSTE. Post-op diagnosis: 2 vessel CAD. Complications: none. Estimated blood loss: 5mL-10mL. Procedure completed. Patient transferred by wheelchair to 1st floor. Vital chart was stopped. Site: Right Radial artery Sheath Size: 6 Fr Hemostasis Method: TR Band Hemostasis Success: Successful Procedure Medications Start: 12:19 PM Stop: 12:19 PM Medication: Versed Amount: 1 mg Route: I.V. Start: 12:20 PM Stop: 12:20 PM Medication: Fentanyl Amount: 50 mcg Route: I.V. Start: 12:20 PM Stop: 12:20 PM Medication: Versed Amount: 1 mg Route: I.V. Start: 12:24 PM Stop: 12:24 PM Medication: Nitrogylcerin Amount: 200 mcg Route: I.A. Start: 12:40 PM Stop: 12:40 PM Medication: Versed Amount: 1 mg Route: I.V. Start: 12:41 PM Stop: 12:41 PM Medication: Fentanyl Amount: 25 mcg Route: I.V. Start: 1:02 PM Stop: 1:02 PM Medication: Plavix Amount: 300 mg Route: P.O. I, the attending physician, have reviewed and verified all procedure medications. Yes, all medications given per verbal order History/Risk Factors Hypertension: Yes Dyslipidemia: Yes Diabetic Therapy: Insulin Peripheral Arterial Disease (PAD): No Myocardial Infarction (MT): Yes Obesity: No Renal Disease: No Tobacco Use: Current/Recent(w/in 1 year) Prior Interventions PCI: No CABG: No Valve Surgery: No Report Signatures Finalized by:Adalgisa Chavez MD on 01/07/2020 6:50:45 PM
[2019-12-25] MEDS: metoprolol succinate ER (24 HR) 25 mg Tablet 12.5 MG PO (09:01)
[2019-12-25] MEDS: diphenhydrAMINE 50 mg Capsule PO (09:01)
[2019-12-25] MEDS: atorvastatin 40 mg Tablet PO (09:01)
[2019-12-25] MEDS: clopidogrel 75 mg Tablet PO (09:01)
[2019-12-25] MEDS: aspirin 81 mg EC Tablet PO (09:02)
[2019-12-25] MEDS: enoxaparin 80 mg/0.8 mL Syringe SUBCUT (09:05)
[2019-12-25] MEDS: sodium chloride 0.9% 1,000 ML 50 ML IV (09:05)
--- NOTE | 2019-12-25 09:52 | PC.RESP ---
SMOKING CESSATION INFORMATION SENT TO PATIENT.
--- NOTE | 2019-12-25 10:53 | P.PN_ITS ---
Subjective Subjective: Interval history: States he is doing alright. Denies chest pain. Vitals/I&O/Wt Last Vital Signs Temp 98.1 F 12/25/19 10:47 Pulse 65 12/25/19 10:47 Resp 14 12/25/19 10:47 BP 109/67 12/25/19 10:47 Pulse Ox 94 12/25/19 10:47 12/24/19 12/25/19 12/25/19 22:59 06:59 14:59 Intake Total 500 / 980 600 / 1580 Output Total 1550 / 3300 1075 / 4375 Balance -1050 / -2320 -475 / -2795 Weight last 48 hrs Weight 79.379 kg Physical Exam Const: COMMON NORMALS: no acute distress and patient oriented x3 HENMT: COMMON NORMALS: oropharynx normal Neck/C-Spine: COMMON NORMALS: no JVD Resp: COMMON NORMALS: normal respiratory effort and clear to auscultation bilaterally AUSCULTATION: clear to auscultation bilaterally Cardio: COMMON NORMALS: no JVD, regular rhythm, S1 normal heart sound present, S2 normal heart sound present and No murmurs present (Cardio) RHYTHM: regular rhythm HEART SOUNDS: S1 normal heart sound present and S2 normal heart sound present GI: COMMON NORMALS: Normal to inspection, nondistended, normoactive bowel sounds present, Soft to palpation and non-tender PALPATION: Yes Soft to palpation Extremity: COMMON NORMALS: no joint enlargement and no pedal edema Neuro: COMMON NORMALS: patient oriented x3 and moves all extremities Skin: COMMON NORMALS: no rashes or lesions noted GENERAL SKIN EXAM: no rashes or lesions noted Data : 12/25/19 03:05 12/25/19 03:05 A&P Assessment and plan (1) NSTEMI (non-ST elevated myocardial infarction): Coronary angiography after COVID19 testing available today. Chest pain currently is gone, however, on and off episodes over the last several weeks, with the worst one last night lasting several hours. Not related to movement, breathing, thought may be heartburn, but was not at all improved by Gaviscon. Multiple coronary disease risk factors including current smoker. Troponin with significant delta up to 98 on 2-hour study. Will be seen by cardiology with regards to assessment for non-STEMI and likely progression of coronary disease. Reports he had an angiogram at age 40 at which time already required PTCA, although no stents were placed. TTE pending. Continue aspirin, beta-nirav, statin, Plavix, received loading dose last night. Continue Lovenox. Status: Acute (2) Smoker: Continue to encourage cessation. [id number] history. Status: Acute (3) JEAN (acute kidney injury): Improved. Creatinine down to 1. With comorbidities can suspect diabetic nephropathy. On admission some concern for cardiorenal syndrome. Status: Acute Additional A&P Information Type 2 diabetes: Moderate sliding scale Attestations Medical Necessity Statement*: Continue admission for assessment and management of NSTEMI. Coding Level of Care Code Acute [employer] Principal Solution Specialist for [facility] Jair Diagnoses NSTEMI (non-ST elevated myocardial infarction) I21.4 Smoker F17.200 JEAN (acute kidney injury) N17.9
[2019-12-25 10:59] LABS: Glucose Point of Care 105 mg/dL (70-110)
--- NOTE | 2019-12-25 11:12 | PC.CHAP ---
Pastoral Care Encounter/Spiritual Assessment Type of Contact [] Declined sculpture conservator visit [] Patient/Family/Request visit [] Outpatient visit [] Follow-up visit [] Physician referral [] Code/Alert [] Routine visit [] Staff referral [] Actively dying [] Patient sleeping [] Family support [] [] Out of room [] Palliative care [] [] Receiving care in room [] Pre-surgical visit [] Trauma [] Long length of stay [] ICU visit [X] Other: Isolation Relational/Emotional Strength [] Patient feels connected with others/family/visitors/staff [] Distress [] Loneliness/isolation [] Abandonment Spirituality of Patient [] Person of [place] [] Attends Pentecostalism of their [place] [] Believes in Prayer [] Reads Bible or Episcopalian materials [] There are Spiritual issues to be addressed Cart Driver Interventions [] Prayer [] Active listening [] Non-anxious presence [] Spiritual/emotional support [] Crisis/trauma care [] Spiritual counseling [] Bereavement support [] Provided bereavement packet [] Provided Bible/devotional materials [] Provided toy/stuffed animal, coloring book to patient or family member [] Provided Communion [] Anointing/[place] [] Salvation [] Completed spiritual assessment [] Other: Impact on Illness or Injury [] Angry [] Fearful [] Anxious [] Often cries [] Exhaustion [] Unable to work [] Unable to attend yarsanism [] Unable to walk/stand [] Unable to read [] Unable to drive [] Unable to eat/drink [] Unable to sleep [] Unable to be with family [] Patient intubated [] Other: Summary Isolation Time spent with patient 5 mins
--- NOTE | 2019-12-25 13:09 | P.PN_ITS ---
Subjective Subjective: Interval history: Patient underwent coronary angiogram. He was found to have chronically occluded LAD reconstitute in retrograde fashion from circumflex which is dominant and large vessel. Obtuse marginal 1 which is moderate size and caliber vessel had highly calcified 90% stenosis treated with balloon angioplasty followed by single drug-eluting stent. It was a culprit vessel. RCA is nondominant with 50 to 60% proximal stenosis. Vitals/I&O/Wt Last Vital Signs Temp 98.1 F 12/25/19 10:47 Pulse 65 12/25/19 10:47 Resp 14 12/25/19 10:47 BP 109/67 12/25/19 10:47 Pulse Ox 94 12/25/19 10:47 12/24/19 12/25/19 12/25/19 22:59 06:59 14:59 Intake Total 500 / 980 600 / 1580 Output Total 1550 / 3300 1075 / 4375 Balance -1050 / -2320 -475 / -2795 Weight last 48 hrs Weight 175 lb Physical Exam Narrative: EXAM NARRATIVE: GENERAL: Patient is alert, awake and oriented x3. NECK: No jugular vein distension. HEENT: No cyanosis. No icterus. No pallor. HEART: Regular S1 and S2. No murmur, rub or gallop. LUNGS: Mild crackles in the lower lobe bilaterally. ABDOMEN: Soft, nontender and nondistended. Positive bowel sounds. No guarding, rebound or tenderness. CENTRAL NERVOUS SYSTEM: Grossly nonfocal. EXTREMITIES: Lower extremities without edema bilaterally. Data : 12/25/19 03:05 12/25/19 03:05 A&P Assessment and plan (1) NSTEMI (non-ST elevated myocardial infarction): Patient underwent coronary angiogram for non-ST elevation ID. He was found to have chronically occluded LAD reconstitute in retrograde fashion from circumflex which is dominant and large vessel. Obtuse marginal 1 which is moderate size and caliber vessel had highly calcified 90% stenosis treated with balloon angioplasty followed by single drug-eluting stent. It was a culprit vessel. RCA is nondominant with 50 to 60% proximal stenosis. Continue aspirin statin beta-nirav. Follow-up with cardiology in 7 days. Status: Acute (2) Smoker: Advised to quit smoking Status: Acute (3) Dyslipidemia: Continue statin Status: Acute (4) JEAN (acute kidney injury): Resolved. Creatinine is normal today. Status: Acute (5) CHF (congestive heart failure): Well compensated. LV dysfunction with moderately depressed LV function 46%. Status: Acute Attestations Medical Necessity Statement*: Patient require continuation hospitalization for post PCI care. Coding Level of Care Code Established Pt Acute Obiee Lead Developer for [facility]g Fwd Patient Type Established History Expanded Problem Focused Exam Expanded Problem Focused Medical Decision Making Moderate Complexity Diagnoses NSTEMI (non-ST elevated myocardial infarction) I21.4 Smoker F17.200 Dyslipidemia E78.5 JEAN (acute kidney injury) N17.9 CHF (congestive heart failure) I50.9
[2019-12-25 16:35] LABS: Glucose Point of Care 152 mg/dL (70-110)
--- NOTE | 2019-12-25 17:41 | PC.NURSE ---
TR band off at 1610. Altogether, 15 ml of air removed slowly. Patient tolerated well. 2x2 and tegaderm placed, CDI, incision asymptomatic. Nurse to continue to monitor.
--- NOTE | 2019-12-25 18:22 | PC.NURSE ---
mixing and dispensing supervisor called to notify that COVID test came back negative.
--- NOTE | 2019-12-25 18:44 | PC.NURSE ---
Stop IVF per Dr. Chavez verbal order.
--- NOTE | 2019-12-25 18:47 | PC.NURSE ---
Received bedside report from ALEXANDER Thomas. Patient resting in bed talking on phone. Discontinued fluids per Dr Chavez. Dr Chavez in to see patient. discussed procedure outcomes with patient. Patient s/p [facility] with right radial access. TR band has been removed and dressing in place remains c,d,i. Instructed patient on medication changes, site care restrictions and potential for discharge in am. Patient expressed complete understanding.
[2019-12-25 21:03] LABS: Glucose Point of Care 117 mg/dL (70-110)
[2019-12-26 03:33] VITALS: BP 120/75; PULSE 94; RESP 15; TEMP 36.5; O2SAT 95
[2019-12-26 05:37] LABS: Basophils % 0.6 %; Eosinophils # 0.2 10^3/uL (0.0-0.8); Eosinophils % 2.1 %; Hematocrit 49.9 % (42.0-52.0); Hemoglobin 16.5 g/dL (11.7-16.6); Lymphocytes # 1.4 10^3/uL (0.8-4.8); Mean Corpuscular HGB Conc 33.1 g/dL (30.0-36.0); Mean Corpuscular Hemoglobin 32.4 pg (28.0-34.0); Mean Platelet Volume 10.4 fL (7.4-10.4); Monocytes # 0.7 10^3/uL (0.2-0.9); Monocytes % 9.1 %; Neutrophils # 4.9 10^3/uL (1.8-7.7); Neutrophils % 67.8 %; Nucleated Red Blood Cells % 0 %; Platelet Count 248 10^3/cmm (130-400); Red Blood Count 5.09 10^6/uL (4.1-5.3); Red Cell Distribution Width 13.2 % (12.1-15.1); White Blood Count 7.2 10^3/uL (4.0-10.0)
[2019-12-26 05:59] LABS: Anion Gap 18.3 (5-19); Blood Urea Nitrogen 20 mg/dL (8-23); Calcium 9.9 mg/dL (8.5-10.5); Carbon Dioxide 24 mmol/L (22-29); Chloride 100 mmol/L (98-107); Glomerular Filtration Rate 97.6 mL/min (90-130); Glucose 110 mg/dL (65-115); Osmolality Calculated 283 mOsm/kg (285-295); Potassium 4.3 mmol/L (3.5-5.1); Sodium 138 mmol/L (136-145)
[2019-12-26 08:00] VITALS: BP 129/73; PULSE 71; RESP 15; TEMP 36.6; O2SAT 96
[2019-12-26 08:48] LABS: Glucose Point of Care 121 mg/dL (70-110)
[2019-12-26] MEDS: atorvastatin 40 mg Tablet PO (09:09)
[2019-12-26] MEDS: aspirin 81 mg EC Tablet PO (09:09)
[2019-12-26] MEDS: metoprolol succinate ER (24 HR) 25 mg Tablet 12.5 MG PO (09:10)
[2019-12-26] MEDS: clopidogrel 75 mg Tablet PO (09:10)
--- NOTE | 2019-12-26 12:57 | PM.DCS ---
Discharge Providers Date of Admission: 12/24/19 01:22 Date of Discharge: December 26, 2019 Attending Provider at Admission: Adalgisa Washington MD Attending Provider at Discharge: Yovani Dumont Primary Care Provider: Akiko Aranda Diagnoses at Discharge Discharge Diagnosis (1) NSTEMI (non-ST elevated myocardial infarction): Status: Acute (2) Smoker: Status: Acute (3) Dyslipidemia: Status: Acute (4) JEAN (acute kidney injury): Status: Acute (5) CHF (congestive heart failure): Status: Acute Reason for Visit Reason for Visit: cp/high bp Hospital Course Hospital Course: Pleasant 64-year-old gentleman with history of coronary disease, angioplasty at age 40, current smoker, with HLD, diabetes was admitted for assessment management after presenting with recurrent episodes of chest pain, and persistent episode on the day of admission, more severe than others, found to be in non-STEMI on presentation, due to which required assessment by coronary angiography. Mild acute kidney injury on presentation improved. He was tested for COVID-19, found to be negative. Subsequently coronary angiography with finding of chronically occluded LAD, reconstituting in retrograde fashion from circumflex which is dominant and large vessel. OM1, moderate in size and caliber, had highly calcified 90% stenosis which was treated with balloon angioplasty and JAD. After admission for remainder hospitalization he has been feeling well. After the procedure she is feeling great and wanting to return home. He is having no chest pain. Access site is good. He will need follow-up with cardiology in office in 7 days for access site check, renal function check, follow-up with PCP, and then cardiology again in 8-12 weeks. Of note, he does get bothered sometimes by leg cramping at night, please revisit with him during outpatient visit. It does sound like magnesium deficiency may be a culprit and he takes a supplement, however, consider additional investigation. Please continue to assist and encourage him to quit smoking. Physical Exam Const: COMMON NORMALS: no acute distress and patient oriented x3 OTHER: Pleasant, conversant. HENMT: COMMON NORMALS: oropharynx normal Neck/C-Spine: COMMON NORMALS: no JVD Resp: COMMON NORMALS: normal respiratory effort and clear to auscultation bilaterally AUSCULTATION: clear to auscultation bilaterally Cardio: COMMON NORMALS: no JVD, regular rhythm, S1 normal heart sound present, S2 normal heart sound present and No murmurs present (Cardio) RHYTHM: regular rhythm HEART SOUNDS: S1 normal heart sound present and S2 normal heart sound present GI: COMMON NORMALS: Normal to inspection, nondistended, normoactive bowel sounds present, Soft to palpation and non-tender PALPATION: Yes Soft to palpation Extremity: COMMON NORMALS: no joint enlargement and no pedal edema OTHER: Right wrist no ecchymosis or pulsatile mass. Neuro: COMMON NORMALS: patient oriented x3 and moves all extremities Skin: COMMON NORMALS: no rashes or lesions noted GENERAL SKIN EXAM: no rashes or lesions noted Discharge Data Data Completed and Pending: Completed Studies During Hospitalization Category Date Time Status XR chest 1V debbie ble [id number] Stat Exams 12/23/19 21:37 Completed CV echo complete* [id number] Routine Ultrasound 12/24/19 01:37 Completed Pending at discharge Category Date Time Status [employer] request for service Routin e Exams 12/25/19 08:30 Taken Basic Metabolic P jenna AM LABS Lab 12/27/19 04:00 Ordered Complete Blood Co unt w/Auto AM LABS Lab 12/27/19 04:00 Ordered Labs from last 24 hours 12/26/19 12/26/19 12/26/19 08:44 05:03 05:03 WBC 7.2 RBC 5.09 Hgb 16.5 Hct 49.9 MCV 98.0 H MCH 32.4 MCHC 33.1 RDW 13.2 Plt Count 248 MPV 10.4 Neut % (Auto) 67.8 Lymph % (Auto) 20.0 Bremer % (Auto) 9.1 Eos % (Auto) 2.1 Baso % (Auto) 0.6 Neut # (Auto) 4.9 Lymph # (Auto) 1.4 Bremer # (Auto) 0.7 Eos # (Auto) 0.2 Baso # (Auto) 0.0 Nucleated RBC % (a uto) 0 Nucleated RBCs # 0.0 Sodium 138 Potassium 4.3 Chloride 100 Carbon Dioxide 24 Anion Gap 18.3 BUN 20 Creatinine 0.8 GFR Calculation 97.6 Glucose 110 POC Glucose 121 Calculated Osmolal ity 283 L Calcium 9.9 Nasal/Oral COVID-1 9 PCR 12/25/19 12/25/19 12/24/19 20:56 16:32 12:45 WBC RBC Hgb Hct MCV MCH MCHC RDW Plt Count MPV Neut % (Auto) Lymph % (Auto) Bremer % (Auto) Eos % (Auto) Baso % (Auto) Neut # (Auto) Lymph # (Auto) Bremer # (Auto) Eos # (Auto) Baso # (Auto) Nucleated RBC % (a uto) Nucleated RBCs # Sodium Potassium Chloride Carbon Dioxide Anion Gap BUN Creatinine GFR Calculation Glucose POC Glucose 117 152 Calculated Osmolal ity Calcium Nasal/Oral COVID-1 9 PCR See comment Vitals: Last Vital Signs Temp 97.8 F 12/26/19 08:00 Pulse 71 12/26/19 08:00 Resp 15 12/26/19 08:00 BP 129/73 12/26/19 08:00 Pulse Ox 96 12/26/19 08:00 Discharge Plan Discharge Patient Disposition: Home, Self-Care Condition: Stable Prescriptions: New metoprolol succinate 25 mg Tablet Extended Release 24 Hr 12.5 mg PO DAILY Qty: 30 RF: 0 clopidogrel 75 mg Tablet 75 mg PO DAILY Qty: 30 RF: 0 Continued atorvastatin 40 mg Tablet 40 mg PO QPM RF: 0 metformin 500 mg Tablet 500 mg PO BID RF: 0 aspirin 325 mg Tablet 325 mg PO DAILY RF: 0 Actos 30 mg Tablet 30 mg PO DAILY RF: 0 Jardiance 25 mg Tablet 25 mg PO DAILY RF: 0 Trulicity SUBCUT DIRECTED RF: 0 Discharge Orders: Discharge Order (Routine); Ordered 12/26/19 Ordered By: Yovani Dumont Referrals: Adalgisa Chavez MD [Physician] - 2 months (You have an appointment with Dr. Chavez on March 03 at 1:45p.m. If you have any questions or need to reschedule. Please, call ) Holly Simpson FNP [Nurse Practitioner] - 1 week (You have an follow-up appointment with Holly Simpson on January 02 at 10:00a.m. If you have any questions or need to reschedule. Please, [phone]) Akiko Aranda PA [Primary Care Provider] - 4-7 days (You have an follow-up appointment with Akiko Aranda on December, at 9:45a.m. If you have any questions or need to reschedule. Please call, ) Discharge Diet: Cardiac and Diabetic Discharge Activity: Increase activity as tolerated and Limit activity as instructed Patient Instructions: Metoprolol (By mouth), Clopidogrel (By mouth), Amino Acid Supplement (By mouth), Heart Failure (DC), Left Heart Catheterization (DC), CHF Stoplight, Post Angiogram Home Care Instructions Activity Restrictions/Additional Instructions: Avoid lifting more than 3 pounds for at least several days. If you experience any bulging, bleeding or swelling at the right wrist, seek medical attention. Please stop smoking, as smoking will cause progression of coronary disease, leading to further heart attack, may contribute to other cardiovascular conditions, stroke, blockage of arteries in the legs, and other conditions. Please discuss further with your primary care doctor. If you experience non-resolving chest pain, fainting, or other abnormal symptoms, please seek medical attention. Continue working with your primary care doctor to optimize treatment of diabetes Please have your kidney function checked either with cardiology office or primary care. Discussed with your primary care doctor regarding leg cramping at night. Discharge Attestations Time Spent in Discharge Care*: greater than 30 min Quality Metrics Clinical Quality Measures During this hospital stay, did patient experience: AMI Clinical Trial Participant: No Contraindication to aspirin (AMI): Aspirin given Contraindication to statin: Statin prescribed Coding Level of Care Code Acute Machine Straw Hat Presser for [facility] Fwd Diagnoses NSTEMI (non-ST elevated myocardial infarction) I21.4 Smoker F17.200 Dyslipidemia E78.5 JEAN (acute kidney injury) N17.9 CHF (congestive heart failure) I50.9
[2019-12-26 13:06] VITALS: TEMP 36.4
--- NOTE | 2019-12-26 18:38 | P.PN_ITS ---
Subjective Subjective: Interval history: Stable no overnight event. He is walking around without any difficulty. Vitals/I&O/Wt Last Vital Signs Temp 97.6 F 12/26/19 13:06 Pulse 71 12/26/19 08:00 Resp 15 12/26/19 08:00 BP 129/73 12/26/19 08:00 Pulse Ox 96 12/26/19 08:00 12/26/19 12/26/19 12/26/19 06:59 14:59 22:59 Intake Total 620 / 1821.667 840 / 840 Output Total 1000 / 1000 Balance 620 / 821.667 -160 / -160 Physical Exam Narrative: EXAM NARRATIVE: GENERAL: Patient is alert, awake and oriented x3. NECK: No jugular vein distension. HEENT: No cyanosis. No icterus. No pallor. HEART: Regular S1 and S2. No murmur, rub or gallop. LUNGS: Mild crackles in the lower lobe bilaterally. ABDOMEN: Soft, nontender and nondistended. Positive bowel sounds. No guarding, rebound or tenderness. CENTRAL NERVOUS SYSTEM: Grossly nonfocal. EXTREMITIES: Lower extremities without edema bilaterally. Data : 12/26/19 05:03 12/26/19 05:03 A&P Assessment and plan (1) NSTEMI (non-ST elevated myocardial infarction): Patient underwent coronary angiogram for non-ST elevation [place]. He was found to have chronically occluded LAD reconstitute in retrograde fashion from circumflex which is dominant and large vessel. Obtuse marginal 1 which is moder ate size and caliber vessel had highly calcified 90% stenosis treated with balloon angioplasty followed by single drug-eluting stent. It was a culprit vessel. RCA is nondominant with 50 to 60% proximal stenosis. Continue aspirin statin beta-nirav. Follow-up with cardiology in 7 days. Status post PCI to obtuse marginal. Doing fine from cardiovascular perspective continue aspirin statin beta-nirav and Plavix. Patient has been advised to continue Plavix for at least 1 year. Status: Acute (2) Smoker: Advised to quit smoking Status: Acute (3) Dyslipidemia: Continue statin Status: Acute (4) JEAN (acute kidney injury): Resolved. Status: Acute (5) CHF (congestive heart failure): Well compensated. Continue current regimen Status: Acute Attestations Medical Necessity Statement*: Require continuation of hospitalization for above defined care. Coding Level of Care Code Acute Bead Wrapper for [facility] Fwd Diagnoses NSTEMI (non-ST elevated myocardial infarction) I21.4 Smoker F17.200 Dyslipidemia E78.5 JEAN (acute kidney injury) N17.9 CHF (congestive heart failure) I50.9
== END 2019-12-26 13:50 | disposition home or self-care (01) | DRG 247 ==
LOC: ER 12-24 01:11 → CSU 12-24 01:33
PROVIDERS: Emergency Medicine; Internal Medicine Cardiovascular Disease; Admitting Provider Internal Medicine; PCP Physician Assistant; Visit Provider Internal Medicine
DX: I21.4 Non-ST elevation (NSTEMI) myocardial infarction (principal); N17.9 Acute kidney failure, unspecified; I25.10 Atherosclerotic heart disease of native coronary artery without angina pectoris; E78.5 Hyperlipidemia, unspecified; E11.9 Type 2 diabetes mellitus without complications; I25.2 Old myocardial infarction; F17.210 Nicotine dependence, cigarettes, uncomplicated; I11.0 Hypertensive heart disease with heart failure; I50.9 Heart failure, unspecified; I45.10 Unspecified right bundle-branch block; Z20.828 Contact with and (suspected) exposure to other viral communicable diseases; G47.62 Sleep related leg cramps; F51.9 Sleep disorder not due to a substance or known physiological condition, unspecified; Z79.4 Long term (current) use of insulin; Z79.82 Long term (current) use of aspirin
CPT/HCPCS: 12345; 36415; 36416; 71045; 80048; 80053; 80061; 80306; 82962; 83036; 83880; 84443; 84484; 85025; 85378; 85610; 85730; 87635; 90471; 90732; 93005; 93306; 93454; 96372; 99282; C1725; C1769; C1874; C1887; C1894; C9600; J1644; J1650; J1815; J2001; J2250; J3010; J3490; J7030; Q0163; Q9967

== ENCOUNTER 2020-04-13 11:01 | Emergency (ER) | payer OTHER, SELFPAY ==
[2020-04-13 11:04] VITALS: BP 128/76; PULSE 86; RESP 18; TEMP 36.1; O2SAT 96; BMI 25.1
--- NOTE | 2020-04-13 11:21 | W.ED.ALLEREA ---
HPI - Allergic Reaction General: Chief complaint: Allergic Reaction Stated complaint: rash Time Seen by Provider: 04/13/20 11:11 Source: patient Mode of arrival: ambulatory Limitations: no limitations History of Present Illness: HPI narrative: Srinivasan is a 64-year-old male who comes in complaining of a rash that began 10 days ago. He states it started out as itching and what he believes were hives. He had just recently started Protonix for indigestion. He called his doctor's office and was instructed to stop taking this medication. He states since that time the symptoms have progressed. He has 1 large area of bruising to his right flank but otherwise has small little red dots all over his body. He also still has hives. He continues to complain of severe itching. He denies headache, fever, neck pain or stiffness. Denies any abdominal pain or vomiting. Patient states overall he feels better except for the pruritus from this rash. Associated symptoms: Deny abdominal pain, dizziness, facial swelling, hoarseness, nausea, tongue swelling or vomiting Review of Systems Const: Denies: fever(s), chills, body aches, fatigue, malaise or diaphoresis Eyes: Denies: change in vision, blurry vision, photophobia, eye discomfort, eye discharge, eye redness or yellow eyes ENMT: Denies: throat pain, odynophagia, hoarseness, swelling of lips/tongue, ear or mastoid pain, ear discharge, change in hearing or nasal discharge Card: Denies: chest pain, palpitations, irregular heart rhythm, edema, lightheadedness, syncope, pre-syncope, dyspnea on exertion or orthopnea Resp: Denies: dyspnea, productive cough, non-productive cough, wheezing, hemoptysis or chest congestion GI: Denies: abdominal pain, nausea, vomiting, hematemesis, coffee ground emesis, heartburn, diarrhea, constipation, GI cramping, hematochezia or melena : Denies: flank pain, dysuria, urinary frequency, urinary urgency or hematuria Musc: Denies: neck pain, back pain, extremity pain, extremity swelling, joint pain, joint swelling, joint redness, joint warmth or joint stiffness Skin/Breast: Reports: rash, pruritus and erythema; Denies: skin pain or skin tenderness Neuro: Denies: headache(s), numbness in extremities, weakness in extremities, sensory changes, lack of coordination, difficulty walking, dizziness, vertigo, confusion, Slurred speech present or seizure-like activity Zacarias/Lymph: Denies: easy bruising, easy bleeding, petechiae, purpura or enlarged lymph nodes All/Imm: Denies: urticaria, throat swelling, tongue swelling, facial swelling or acute wheezing PFSH ED PFSH: Medical History CHF (congestive heart failure) Coronary artery disease Dyslipidemia Smoker Smoker Type 2 diabetes mellitus Surgical History H/O shoulder surgery H/O skin graft Family History Denies family history of Hyperlipidemia Lung disease Hypertension Social History Smoking and tobacco status: heavy tobacco smoker cigarettes [ Other cigarette details: 1.5 pack per day for last 40 years ] Alcohol intake: current Household members: significant other Housing: House Current occupational status: employed 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 Physical Exam Const: COMMON NORMALS: no acute distress, patient oriented x3, no limitations and alert GENERAL APPEARANCE: cooperative HENMT: COMMON NORMALS: normocephalic, atraumatic, external ears normal, EAC's normal and Normal external nose present HEAD & SCALP: normal to inspection, normocephalic and atraumatic FACE & SINUS: normal facial exam and face symmetric NOSE: Normal external nose present and Normal nares present EXTERNAL EAR: Yes external ears normal EXTERNAL AUDITORY CANAL: EAC's normal MOUTH: Normal oral and palatal mucosa present, lip normal and tongue normal Eye: COMMON NORMALS: Equal, round and reactive pupils present and conjunctivae normal GENERAL EYE: appearance normal, both eyes and all related structures ALIGNMENT: Yes alignment normal PERIORBITAL: periorbital findings normal EYELID: eyelids normal CONJUNCTIVA: Yes conjunctivae normal SCLERA: sclerae normal PUPIL: Yes Equal, round and reactive pupils present Neck/C-Spine: COMMON NORMALS: full ROM, no lymphadenopathy, supple, no meningeal signs and no JVD GENERAL: Yes normal visual inspection and Yes trachea midline Chest: COMMONS NORMALS: normal inspection of the chest and normal palpation of entire chest wall Resp: COMMON NORMALS: normal respiratory effort, No retractions, No use of accessory muscles and clear to auscultation bilaterally EFFORT & INSPECTION: Yes able to speak in complete sentences and Yes symmetric chest movement AUSCULTATION: clear to auscultation bilaterally, no crackles, no rales, no rhonchi and no wheezes Cardio: COMMON NORMALS: no JVD, regular rate, regular rhythm, S1 normal heart sound present and S2 normal heart sound present RATE: regular rate RHYTHM: regular rhythm HEART SOUNDS: S1 normal heart sound present, S2 normal heart sound present, no click, no gallops, no murmurs and no rubs GI: COMMON NORMALS: Soft to palpation and No hepatosplenomegaly present PALPATION: Yes Soft to palpation, No Tenderness to palpation present (GI), No Guarding due to palpation present (GI), No Rigid due to palpation, Yes No hepatosplenomegaly present, No Hernia present, No Palpable mass present and No Pulsatile mass present : COMMON NORMALS: Yes no CVA tenderness BLADDER/KIDNEY EXAM: Yes no CVA tenderness Back/Pelvis: COMMON NORMALS: no CVA tenderness, thoracic and lumbar spine normal to inspection, no thoracic nor lumbar tenderness and thoraco-lumbar ROM normal Extremity: COMMON NORMALS: normal to inspection, full ROM, capillary refill normal, no joint enlargement, no clubbing, cyanosis or edema and no calf tenderness Neuro: COMMON NORMALS: patient oriented x3, CN's II-XII intact bilaterally, moves all extremities, no focal motor deficits and no sensory deficits noted SENSORIUM/ORIENTATION: Yes alert MENINGEAL SIGNS: Yes no meningeal signs SPEECH: speech normal Psych: COMMON NORMALS: mental status grossly normal, Normal thought process present, cooperative, normal affect, speech normal and activity/motor behavior normal SPEECH: Yes normal speech THOUGHT PROCESS: Normal thought process present Skin: COMMON NORMALS: turgor normal, no jaundice and no mottling NARRATIVE SKIN EXAM: Areas of hives present on the patient's arms and torso along with small petechiae. 1 area of older ecchymosis to the right flank. No oral lesions. GENERAL SKIN EXAM: turgor normal Course Vital Signs: Vital signs: Vital Signs Temperature 97.0 F L 04/13/20 11:04 Pulse Rate 101 H 04/13/20 11:38 Respiratory Rate 20 H 04/13/20 11:38 Blood Pressure 115/81 04/13/20 11:38 Pulse Oximetry 95 04/13/20 11:38 MDM - Allergic Reaction MDM Narrative: Medical decision making narrative: Srinivasan's reaction appears to be a lupus-like vasculitis that can happen with Protonix. I see no evidence of ITP, TTP although another type of vasculitis is a possibility. Patient shows no sign of sepsis or systemic illness. I see no sign of meningococcemia. The patient symptoms all started right after he started Protonix. I reviewed the case with Dr. Aranda who agrees to have the patient stop the Protonix and start a prednisone Dosepak along with Pepcid to help his stomach as well as the hives. The patient can continue to take Benadryl as needed for itching. Patient agrees to follow this plan and will follow-up as directed. I did review with him the signs and symptoms which to return and he states he understands. I see no other sign of acute life-threatening problem at this time. The patient did understand that this could be something early and if he worsens or his symptoms change he need to return to the ER immediately. Lab Data: Labs: Lab Results 04/13/20 04/13/20 04/13/20 Range/Units 11:35 11:40 11:40 WBC 7.9 (4.0-10.0) 10^3/ uL RBC 4.68 (4.1-5.3) 10^6/u L Hgb 15.1 (11.7-16.6) g/dL Hct 47.0 (42.0-52.0) % MCV 100.4 H (80-94) fL MCH 32.3 (28.0-34.0) pg MCHC 32.1 (30.0-36.0) g/dL RDW 13.9 (12.1-15.1) % Plt Count 370 (130-400) 10^3/c mm MPV 10.1 (7.4-10.4) fL Neut % (Auto) 67.0 % Lymph % (Auto) 19.1 % Haralson % (Auto) 7.2 % Eos % (Auto) 5.6 % Baso % (Auto) 0.8 % Neut # (Auto) 5.30 (1.8-7.7) 10^3/u L Lymph # (Auto) 1.5 (0.8-4.8) 10^3/u L Haralson # (Auto) 0.6 (0.2-0.9) 10^3/u L Eos # (Auto) 0.4 (0.0-0.8) 10^3/u L Baso # (Auto) 0.1 (0.0-0.1) 10^3/u L Nucleated RBC % (a uto) 0 % Nucleated RBCs # 0.0 /100WBC ESR 16 H (0-10) mm/hr PT (12.1-14.9) SECO NDS INR (0.8-1.2) APTT (23.9-36.7) SECO NDS Fibrinogen (174-498) mg/dL D-Dimer (0-0.59) ug/mIFE U Sodium (136-145) mmol/L Potassium (3.5-5.1) mmol/L Chloride (98-107) mmol/L Carbon Dioxide (22-29) mmol/L Anion Gap (5-19) BUN (8-23) mg/dL Creatinine (0.7-1.2) mg/dL GFR Calculation (90-130) mL/min Glucose (65-115) mg/dL Calculated Osmolal ity (285-295) mOsm/k g Lactic Acid (0.5-2.2) mmol/L Calcium (8.5-10.5) mg/dL Total Bilirubin (0.15-1.2) mg/dL AST (0-40) U/L ALT (0-41) U/L Alkaline Phosphata se (40-130) IU/L C-Reactive Protein (0.0-4.9) mg/L Total Protein (6.6-8.7) g/dL Albumin (3.5-5.2) g/dL Globulin (1.3-4.6) g/dL Urine Color Yellow (Yellow) Urine Appearance Clear (CLEAR) Urine pH 5 (5-7) Ur Specific Gravit y 1.010 (1.005-1.030) Urine Protein Neg (Negative) Urine Glucose (UA) 4+ H (Normal) Urine Ketones Negative (Negative) Urine Blood Neg (Negative) Urine Nitrate Negative (Negative) Urine Bilirubin Neg (Negative) Urine Urobilinogen Norm (Negative) mg/dL Ur Leukocyte Aurea ase Negative (Negative) 04/13/20 04/13/20 04/13/20 Range/Units 11:40 11:40 11:40 WBC (4.0-10.0) 10^3/ uL RBC (4.1-5.3) 10^6/u L Hgb (11.7-16.6) g/dL Hct (42.0-52.0) % MCV (80-94) fL MCH (28.0-34.0) pg MCHC (30.0-36.0) g/dL RDW (12.1-15.1) % Plt Count (130-400) 10^3/c mm MPV (7.4-10.4) fL Neut % (Auto) % Lymph % (Auto) % Haralson % (Auto) % Eos % (Auto) % Baso % (Auto) % Neut # (Auto) (1.8-7.7) 10^3/u L Lymph # (Auto) (0.8-4.8) 10^3/u L Haralson # (Auto) (0.2-0.9) 10^3/u L Eos # (Auto) (0.0-0.8) 10^3/u L Baso # (Auto) (0.0-0.1) 10^3/u L Nucleated RBC % (a uto) % Nucleated RBCs # /100WBC ESR (0-10) mm/hr PT 12.30 (12.1-14.9) SECO NDS INR 0.89 (0.8-1.2) APTT 27.0 (23.9-36.7) SECO NDS Fibrinogen 468 (174-498) mg/dL D-Dimer 0.48 (0-0.59) ug/mIFE U Sodium 137 (136-145) mmol/L Potassium 4.4 (3.5-5.1) mmol/L Chloride 97 L (98-107) mmol/L Carbon Dioxide 27 (22-29) mmol/L Anion Gap 17.4 (5-19) BUN 21 (8-23) mg/dL Creatinine 1.1 (0.7-1.2) mg/dL GFR Calculation 67.6 L (90-130) mL/min Glucose 161 H (65-115) mg/dL Calculated Osmolal ity 290 (285-295) mOsm/k g Lactic Acid (0.5-2.2) mmol/L Calcium 9.2 (8.5-10.5) mg/dL Total Bilirubin 0.5 (0.15-1.2) mg/dL AST 17 (0-40) U/L ALT 17 (0-41) U/L Alkaline Phosphata se 105 (40-130) IU/L C-Reactive Protein 3.0 (0.0-4.9) mg/L Total Protein 8.4 (6.6-8.7) g/dL Albumin 4.7 (3.5-5.2) g/dL Globulin 3.7 (1.3-4.6) g/dL Urine Color (Yellow) Urine Appearance (CLEAR) Urine pH (5-7) Ur Specific Gravit y (1.005-1.030) Urine Protein (Negative) Urine Glucose (UA) (Normal) Urine Ketones (Negative) Urine Blood (Negative) Urine Nitrate (Negative) Urine Bilirubin (Negative) Urine Urobilinogen (Negative) mg/dL Ur Leukocyte Aurea ase (Negative) 04/13/20 Range/Units 11:40 WBC (4.0-10.0) 10^3/ uL RBC (4.1-5.3) 10^6/u L Hgb (11.7-16.6) g/dL Hct (42.0-52.0) % MCV (80-94) fL MCH (28.0-34.0) pg MCHC (30.0-36.0) g/dL RDW (12.1-15.1) % Plt Count (130-400) 10^3/c mm MPV (7.4-10.4) fL Neut % (Auto) % Lymph % (Auto) % Haralson % (Auto) % Eos % (Auto) % Baso % (Auto) % Neut # (Auto) (1.8-7.7) 10^3/u L Lymph # (Auto) (0.8-4.8) 10^3/u L Haralson # (Auto) (0.2-0.9) 10^3/u L Eos # (Auto) (0.0-0.8) 10^3/u L Baso # (Auto) (0.0-0.1) 10^3/u L Nucleated RBC % (a uto) % Nucleated RBCs # /100WBC ESR (0-10) mm/hr PT (12.1-14.9) SECO NDS INR (0.8-1.2) APTT (23.9-36.7) SECO NDS Fibrinogen (174-498) mg/dL D-Dimer (0-0.59) ug/mIFE U Sodium (136-145) mmol/L Potassium (3.5-5.1) mmol/L Chloride (98-107) mmol/L Carbon Dioxide (22-29) mmol/L Anion Gap (5-19) BUN (8-23) mg/dL Creatinine (0.7-1.2) mg/dL GFR Calculation (90-130) mL/min Glucose (65-115) mg/dL Calculated Osmolal ity (285-295) mOsm/k g Lactic Acid 2.2 (0.5-2.2) mmol/L Calcium (8.5-10.5) mg/dL Total Bilirubin (0.15-1.2) mg/dL AST (0-40) U/L ALT (0-41) U/L Alkaline Phosphata se (40-130) IU/L C-Reactive Protein (0.0-4.9) mg/L Total Protein (6.6-8.7) g/dL Albumin (3.5-5.2) g/dL Globulin (1.3-4.6) g/dL Urine Color (Yellow) Urine Appearance (CLEAR) Urine pH (5-7) Ur Specific Gravit y (1.005-1.030) Urine Protein (Negative) Urine Glucose (UA) (Normal) Urine Ketones (Negative) Urine Blood (Negative) Urine Nitrate (Negative) Urine Bilirubin (Negative) Urine Urobilinogen (Negative) mg/dL Ur Leukocyte Aurea ase (Negative) Imaging Data^: CXR: Attestation: I personally reviewed and interpreted this imaging study as follows: My impression: No acute cardiopulmonary findings. Discharge Plan Discharge Patient Disposition: Home Clinical Impression: Vasculitis of skin Adverse reaction to drug Qualifiers: Encounter type: initial encounter Qualified Code(s): T50.905A - Adverse effect of unspecified drugs, medicaments and biological substances, initial encounter Allergic reaction Qualifiers: Encounter type: initial encounter Qualified Code(s): T78.40XA - Allergy, unspecified, initial encounter Condition: Stable Prescriptions: New prednisone 10 mg tablets,dose pack See Rx Instructions .ROUTE .COMPLEX Qty: 21 RF: 0 Pepcid 40 mg tablet 40 mg PO BID 28 Days Qty: 56 RF: 0 No Action clopidogrel 75 mg tablet 75 mg PO DAILY Qty: 90 RF: 2 isosorbide mononitrate 30 mg tablet extended release 24 hr 15 mg PO BID Qty: 90 RF: 3 atorvastatin 40 mg Tablet 40 mg PO QPM RF: 0 aspirin 325 mg Tablet 325 mg PO DAILY RF: 0 pioglitazone [Actos] 30 mg Tablet 30 mg PO DAILY RF: 0 Jardiance 25 mg Tablet 25 mg PO DAILY RF: 0 Trulicity See Rx Instructions .ROUTE .COMPLEX RF: 0 metformin 500 mg Tablet Extended Release 24 Hr 1,000 mg PO BID RF: 0 Fish Oil 1,200 (144-216) mg Capsule 1 cap PO BID RF: 0 Ocuvite Eye Health 50 mg-15 unit- 4.5 mg-2.5 mg Tablet,Chewable 1 tab PO BID RF: 0 Cinnamon 1 cap PO DAILY RF: 0 Discharge Orders: Discharge Order (Routine); Ordered 04/13/20 Ordered By: Jerrica Arteaga Referrals: Akiko Aranda PA [Primary Care Provider] - 1-3 days Discharge Diet: Advance as tolerated Discharge Activity: Increase activity as tolerated Patient Instructions: Urticaria (ED) Activity Restrictions/Additional Instructions: Please return to the ER immediately for any of the signs or symptoms listed on your discharge instruction sheets, worsening/changing of your symptoms, you are not getting better as quickly as expected, or for ANY other cause or concerns. Stop taking your Protonix and take the Pepcid I have prescribed you for your stomach. Take the prednisone pack as well it should help with your rash and itching. Continue to take Benadryl as you have been as needed for itching. Be certain to follow-up with the Akiko Aranda this week for recheck. If you develop fever, lesions in your mouth, worsening of your rash or have any new symptoms please return to the ER immediately for recheck. Coding Level of Care Code ED Tennis [employer] Attendant for Allison Fwd Exam Comprehensive
[2020-04-13 11:38] VITALS: BP 115/81; PULSE 101; RESP 20; O2SAT 95
[2020-04-13] MEDS: sodium chloride 0.9% 1,000 ML 100 ML IV (11:50)
[2020-04-13] MEDS: diphenhydrAMINE 50 mg/mL SDV 1mL 25 MG IVP (11:50)
[2020-04-13 11:59] LABS: Add Urine Microscopic? NO
[2020-04-13 12:00] VITALS: BP 108/60; PULSE 83; O2SAT 94
[2020-04-13 12:00] LABS: Basophils # 0.1 10^3/uL (0.0-0.1); Basophils % 0.8 %; Eosinophils # 0.4 10^3/uL (0.0-0.8); Eosinophils % 5.6 %; Hemoglobin 15.1 g/dL (11.7-16.6); Lymphocytes # 1.5 10^3/uL (0.8-4.8); Lymphocytes % 19.1 %; Mean Corpuscular HGB Conc 32.1 g/dL (30.0-36.0); Mean Corpuscular Hemoglobin 32.3 pg (28.0-34.0); Mean Corpuscular Volume 100.4 fL (80-94); Mean Platelet Volume 10.1 fL (7.4-10.4); Monocytes # 0.6 10^3/uL (0.2-0.9); Monocytes % 7.2 %; Nucleated Red Blood Cells % 0 %; Platelet Count 370 10^3/cmm (130-400); Red Blood Count 4.68 10^6/uL (4.1-5.3); Red Cell Distribution Width 13.9 % (12.1-15.1); White Blood Count 7.9 10^3/uL (4.0-10.0)
[2020-04-13 12:15] LABS: INR 0.89 (0.8-1.2)
[2020-04-13 12:19] LABS: Bilirubin Urine Neg (Negative); Blood Urine Neg (Negative); Glucose Urine UA 4+ (Normal); Ketones Urine Negative (Negative); Leukocyte Esterase Urine Negative (Negative); Nitrate Urine Negative (Negative); Protein Urine Neg (Negative); Urine Appearance Clear (CLEAR); Urine Color Yellow (Yellow); Urobilinogen Urine Norm (Negative); pH Urine 5 (5-7)
[2020-04-13 12:22] LABS: Alanine Aminotransferase 17 U/L (0-41); Albumin Level 4.7 g/dL (3.5-5.2); Alkaline Phosphatase 105 IU/L (40-130); Anion Gap 17.4 (5-19); Aspartate Amino Transferase 17 U/L (0-40); Blood Urea Nitrogen 21 mg/dL (8-23); Calcium 9.2 mg/dL (8.5-10.5); Carbon Dioxide 27 mmol/L (22-29); Chloride 97 mmol/L (98-107); Globulin 3.7 g/dL (1.3-4.6); Glomerular Filtration Rate 67.6 mL/min (90-130); Glucose 161 mg/dL (65-115); Osmolality Calculated 290 mOsm/kg (285-295); Potassium 4.4 mmol/L (3.5-5.1); Sodium 137 mmol/L (136-145); Total Bilirubin 0.5 mg/dL (0.15-1.2); Total Protein 8.4 g/dL (6.6-8.7)
--- NOTE | 2020-04-13 12:40 | XRR_ITS ---
PROCEDURE INFORMATION: Exam: XR Chest, 1 View Exam date and time: 04/13/2020 12:41 PM Age: 64 years old Clinical indication: Other: Allergic reaction; Additional info: Injury TECHNIQUE: Imaging protocol: XR of the chest Views: 1 view. COMPARISON: CR XR chest 1V portable [id number] 12/23/2019 10:02 PM FINDINGS: Lungs: Stable oval-shaped scar in the right upper lobe. Pleural space: Unremarkable. No pleural effusion. No pneumothorax. Heart/Mediastinum: Unremarkable. No cardiomegaly. Vasculature: Calcification of the thoracic aorta and/or great vessels consistent with atherosclerotic vessel disease. Bones/joints: Stable one or more healed right rib fractures. Status post resection of the right lateral clavicle. Other findings: Stable postoperative changes over the right shoulder. XR/XR chest 1V portable [id number] IMPRESSION: No acute findings.
[2020-04-13 12:59] LABS: Erythrocyte Sedimentation Rate 16 mm/hr (0-10)
[2020-04-13 13:00] VITALS: BP 96/71; PULSE 70; O2SAT 94
[2020-04-13 13:35] LABS: Lactic Sepsis W/Reflex 2.2 mmol/L (0.5-2.2)
[2020-04-13 13:37] LABS: Fibrinogen 468 mg/dL (174-498)
[2020-04-13 13:39] LABS: D Dimer 0.48 ug/mIFEU (0-0.59)
[2020-04-13 14:00] VITALS: BP 109/67; PULSE 73; RESP 16; O2SAT 94
[2020-04-13 14:15] LABS: Reflex Lactate Order REFLEX LACTIC ORDERD
[2020-04-13] MEDS: predniSONE 20 mg Tablet 60 MG PO (14:27)
[2020-04-13] MEDS: famotidine 20 mg Tablet 40 MG PO (14:27)
== END 2020-04-13 14:34 | disposition home or self-care (01) ==
PROVIDERS: Emergency Provider Emergency Medicine; PCP Physician Assistant
DX: L95.9 Vasculitis limited to the skin, unspecified (principal); T50.905A Adverse effect of unspecified drugs, medicaments and biological substances, initial encounter; T78.40XA Allergy, unspecified, initial encounter; Z79.02 Long term (current) use of antithrombotics/antiplatelets; Z79.82 Long term (current) use of aspirin; I50.9 Heart failure, unspecified; I25.10 Atherosclerotic heart disease of native coronary artery without angina pectoris; E78.5 Hyperlipidemia, unspecified; E11.9 Type 2 diabetes mellitus without complications; Z79.84 Long term (current) use of oral hypoglycemic drugs; F17.210 Nicotine dependence, cigarettes, uncomplicated
CPT/HCPCS: 12345; 71045; 80053; 81003; 83605; 85025; 85378; 85384; 85610; 85651; 85730; 86140; 87040; 87205; 96375; 99283; J1200; J7030; J7512

== ENCOUNTER 2020-09-10 10:40 | Outpatient (CLI) | payer OTHER, SELFPAY ==
--- NOTE | 2020-09-10 11:00 | USCV_ITS ---
Jayden Baldwin Age: 65 Gender: M : 1955 Exam Date: 09/10/2020 11:08 Ordering Phys: Adalgisa Chavez MD ([email or web address]) Technologist: Elizabeth Marie Exam Location: [facility] [place] Indication: SOB BP: 103 / 65 HR: 85 Rhythm: Sinus Technical Quality: Good MEASUREMENTS (Male / Female) Normal Values 2D ECHO LV Diastolic Diameter PLAX 6.2 cm 4.2 - 5.9 / 3.9 - 5.3 cm LV Systolic Diameter PLAX 5.9 cm IVS Diastolic Thickness 1.0 cm 0.6 - 1.0 / 0.6 - 0.9 cm IVS Systolic Thickness 1.1 cm LVPW Diastolic Thickness 1.2 cm 0.6 - 1.0 / 0.6 - 0.9 cm LVPW Systolic Thickness 1.5 cm LVOT Diameter 2.0 cm LV Ejection Fraction 2D Teich 12.7 % LV Ejection Fraction MOD 2C 24.1 % LV Ejection Fraction 2C AL 21.4 % LA Diameter 5.5 cm LA Width 5.4 cm LA Height 6.5 cm RA Width 4.0 cm RA Height 4.4 cm Aorta at Sinotubular Diameter 2.8 cm M-MODE LV Diastolic Diameter MM 8.6 cm 4.2 - 5.9 / 3.9 - 5.3 cm LV Systolic Diameter MM 7.0 cm LV Ejection Fraction MM Teich 37.3 % IVS Diastolic Thickness MM 0.6 cm 0.6 - 1.0 / 0.6 - 0.9 cm IVS Systolic Thickness MM 1.1 cm LVPW Diastolic Thickness MM 1.3 cm 0.6 - 1.0 / 0.6 - 0.9 cm LVPW Systolic Thickness MM 1.6 cm Aortic Annulus Diameter 2.7 cm LA Ao Ratio MM 2.1 MV E Point Septal Separation 2.5 cm DOPPLER AV Peak Velocity 104.0 cm/s LVOT Peak Velocity 85.0 cm/s AV Area Cont Eq vti 2.1 cm squared AV Area Cont Eq pk 2.7 cm squared MV Area PHT 5.0 cm squared Mitral E to A Ratio 2.3 MV E' Velocity 61.0 cm/s Mitral E to MV E' Ratio 14.1 Mitral E to LV E' Lateral Ratio 9.9 Mitral E to LV E' Septal Ratio 25.3 TR Peak Velocity 258.0 cm/s TR Peak Gradient 26.6 mmHg Right Atrial Pressure 3.0 mmHg Pulmonary Artery Systolic Pressu 29.6 mmHg PV Peak Velocity 44.0 cm/s RV Acceleration Time 0.1 s RV Ejection Time 0.2 s RV AcT/ET 0.4 FINDINGS Left Ventricle Severely increased left ventricular cavity size. Severely decreased left ventricular systolic function. Left ventricular ejection fraction is estimated at 37 %. Global left ventricular hypokinesis. Grade III/IV diastolic dysfunction (restrictive filling pattern), severely elevated filling pressures. Right Ventricle The right ventricle is normal in size and function. Right Atrium The right atrium is normal in size. Left Atrium Modertely increased left atrial size. Bowing of the left anterior septum from left to right consistent with moderately elevated pressure in the left atrium. Mitral Valve Moderately thickened mitral valve. Moderate mitral annular calcification. No mitral valve stenosis. Moderate mitral valve regurgitation. Aortic Valve Moderate aortic valve calcification. No aortic valve stenosis. No aortic valve regurgitation. Tricuspid Valve Mild tricuspid valve regurgitation. Pulmonic Valve Structurally normal pulmonic valve without significant stenosis. There is no pulmonic regurgitation. Pericardium Normal pericardium without effusion. Aorta Normal ascending aorta dimension. CONCLUSIONS 1-Severely increased left ventricular cavity size. Severely decreased left ventricular systolic function. Left ventricular ejection fraction is estimated at 37 %. Global left ventricular hypokinesis. Grade III/IV diastolic dysfunction (restrictive filling pattern), severely elevated filling pressures. 2-Modertely increased left atrial size. Bowing of the left anterior septum from left to right consistent with moderately elevated pressure in the left atrium. 3-Moderately thickened mitral valve. Moderate mitral annular calcification. No mitral valve stenosis. Moderate mitral valve regurgitation. 4-Moderate aortic valve calcification. No aortic valve stenosis. No aortic valve regurgitation. 5-Mild tricuspid valve regurgitation. 6-There is no pericardial effusion. 7-Pulmonary artery systolic pressure is within normal limits. 8-Right atrial pressure is around 10 mm of mercury. 9-When compared to the prior echocardiogram dated December 24, 2019 there appeared to be reduction in LV function from moderately reduced 45% to severely reduced 37% now. There is moderate to severely enlarged left ventricle there is moderately enlarged left atrium and there is moderate mitral valve regurgitation now. Adalgisa Chavez MD (Electronically Signed) Final Date: 10 September 2020 18:11 S
== END 2020-09-10 10:41 | disposition home or self-care (01) ==
PROVIDERS: PCP Physician Assistant; Visit Provider Internal Medicine Cardiovascular Disease
DX: R06.02 Shortness of breath (principal); I08.3 Combined rheumatic disorders of mitral, aortic and tricuspid valves
CPT/HCPCS: 93306

== ENCOUNTER 2020-09-24 07:13 | Outpatient (CLI) | payer OTHER, SELFPAY ==
[2020-09-24 07:39] VITALS: BMI 25.7
--- NOTE | 2020-09-24 07:39 | ECG_ITS ---
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 The perfusion scan will be documented separately. DATA: Baseline heart rate was 93 beats per minute. Baseline blood pressure was 135/71 millimeters of mercury. Target heart rate was 156. Maximum heart rate achieved was 99. which was 63 % of the predicted target heart rate. Maximum blood pressure was millimeters of mercury. The reason for ending the test was completion of the protocol. The patient did not experience any symptoms. ELECTROCARDIOGRAM: BASELINE: Sinus rhythm. Normal axis. 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 No arrhythmia noted. CONCLUSION: Please note due to baseline abnormality of the EKG specificity and sensitivity of the EKG portion of LexiScan MIBI stress test will be low 1. EKG not suggestive of ischemia 2. Lexiscan injection unremarkable. 3. Perfusion scan will be documented separately. Electronically Signed On 09-25-2020 17:08:08 APPLICATION SUPPORT LEAD by ADALGISA HARRISON [email or web address]
--- NOTE | 2020-09-24 07:40 | NMCV_ITS ---
NM alyce perf SPECT r/s* [id number] Jayden Baldwin Age: 65 Gender: M : 1955 Exam Date: 09/24/2020 08:42 Ordering Phys: Adalgisa Chavez MD ([email or web address]) Technologist: JONATHAN Dior Exam Location: [facility] [place] Indications: SOB STRESS TEST [facility] IMAGE PROTOCOL Rest/Stress 1 Lexiscan Day Radiopharmaceutical Dose (mCi) Administration Site Administered by Rest: Tc-99m 10.7 IV Susan Nellie, RESEARCH LIBRARIAN Sestamibi Stress:Tc-99m 32.4 IV Susan Nellie, RESEARCH LIBRARIAN Sestamibi Rest: 24-Sep-2020 60 Discovery 630 Stress: 24-Sep-2020 60 Discovery 630 0.4mg Lexiscan. Images obtained in supine and prone position. SPECT RESULTS Technical Quality: Good Raw Data Analysis: Normal Image Corrections: No attenuation or motion correction applied Summed Stress Score: 36 Summed Rest Score: 32 Summed Difference Score: 5 PERFUSION FINDINGS Large area of fixed perfusion defect noted in basal to distal anterior anteroseptal inferior and inferolateral septal wall suggestive of old myocardial infarction versus scarring. Only viable wall appeared to be lateral. FUNCTIONAL RESULTS (calculated via Gated SPECT) Stress Image LV EF (%): 25 Stress EDV (mL):395 TID: 1.13 Stress ESV (mL):295 Rest Image LV EF (%): 25 FUNCTIONAL FINDINGS: Anterior, apical, inferior and inferoseptal wall akinesis. There appeared to be apical wall dyskinesis. IMPRESSIONS Large area of old myocardial infarction versus scarring noted in basal to distal anterior anteroseptal inferior and inferoseptal wall without hillary- infarct ischemia. Only wall appear to be viable is lateral.TID ratio is elevated which could be secondary to left ventricle hypertrophy/multivessel coronary artery disease. There is no periinfarct ischemia noted. Adalgisa Chavez MD (Electronically Signed) Final Date: 25 September 2020 17:05 S
[2020-09-24] MEDS: regadenoson 0.4 Mg/5 ml Syringe IVP (09:47)
[2020-09-24 09:58] VITALS: BP 121/64; PULSE 98
== END 2020-09-24 07:14 | disposition home or self-care (01) ==
LOC: CDL 07:15
PROVIDERS: PCP Physician Assistant; Visit Provider Internal Medicine Cardiovascular Disease
DX: R06.02 Shortness of breath (principal); I25.2 Old myocardial infarction
CPT/HCPCS: 78452; 93017; A9500; J2785

== ENCOUNTER → 2020-10-28 16:18 | Outpatient (BNVA) | payer OTHER, SELFPAY | PROVIDERS: PCP Physician Assistant; Visit Provider Nurse Practitioner Family | DX: I50.9 Heart failure, unspecified (principal); I25.10 Atherosclerotic heart disease of native coronary artery without angina pectoris; E78.5 Hyperlipidemia, unspecified | CPT/HCPCS: 80048; 83880 ==

== ENCOUNTER → 2020-11-04 08:29 | Outpatient (BNVA) | payer OTHER, SELFPAY | PROVIDERS: PCP Physician Assistant; Visit Provider Internal Medicine Cardiovascular Disease | DX: I25.10 Atherosclerotic heart disease of native coronary artery without angina pectoris (principal); I50.43 Acute on chronic combined systolic (congestive) and diastolic (congestive) heart failure | CPT/HCPCS: 80048 ==

== ENCOUNTER 2020-11-11 15:28 | Outpatient (CLI) | payer OTHER, SELFPAY | END 2020-11-11 15:29 | disposition home or self-care (01) | LOC: LAB 01-28 16:01 | PROVIDERS: PCP Physician Assistant; Visit Provider Nurse Practitioner Family | DX: I50.43 Acute on chronic combined systolic (congestive) and diastolic (congestive) heart failure (principal) | CPT/HCPCS: 80048 ==

== ENCOUNTER 2020-12-24 11:00 | Outpatient (CLI) | payer OTHER, SELFPAY ==
--- NOTE | 2020-12-24 11:00 | USCV_ITS ---
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 Mild to moderate diffuse plaques in the femoral and popliteal arteries bilaterally RIA 0.19 on the left side at the level of the dorsalis pedis artery CONCLUSIONS Mild to moderate diffuse plaques in the femoral and popliteal arteries bilaterally. Abnormal RIA with respect to the dorsalis pedis artery on the left side, may suggest high-grade lesion in this vessel. Possibly no significant inflow vessel obstruction based on the above findings Dr Sloan Mcrae MD LOCATED WITHIN [facility] (Electronically Signed) Final Date: 25 December 2020 15:53 S
== END 2020-12-24 11:01 | disposition home or self-care (01) ==
LOC: RAD 11:02
PROVIDERS: PCP Physician Assistant; Visit Provider Nurse Practitioner Family
DX: R20.9 Unspecified disturbances of skin sensation (principal); I73.9 Peripheral vascular disease, unspecified; I50.43 Acute on chronic combined systolic (congestive) and diastolic (congestive) heart failure
CPT/HCPCS: 80048; 83880; 93925

== ENCOUNTER 2020-12-31 07:46 | Outpatient (CLI) | payer OTHER, SELFPAY ==
--- NOTE | 2020-12-31 08:00 | CT_ITS ---
WS: [id number] CTA ABDOMINAL AORTA WITH RUNOFF TECHNIQUE: Contrast enhanced CTA of the abdominal aorta with bilateral lower extremity runoff. Multip lanar reformatted images were obtained. MIP reformats were also reviewed. CLINICAL INFORMATION: I73.9 - Peripheral vascular disease, unspecified COMPARISON: None. DLP: 1731.[address] scans at [facility] use at least one of these dose optimization techniques: automat ed exposure control; mA and/or kV adjustment per patient size (includes targeted exams where dose is matched to clinical indication); or iterative reconstruction. FINDINGS: Cardiomegaly. Small right pleural effusion. Subsegmental atelectasis right lower lobe. Hepa tomegaly. Cholelithiasis. Small amount of perihepatic ascites. Small amount of perisplenic ascites. N ormal GE junction. Adrenal glands are normal. Normal renal parenchymal enhancement. No hydronephrosis. Normal caliber ab dominal aorta. Mild aortic calcification. Celiac and SMA origins are patent. Mild left renal artery o stial stenosis. 2 right renal arteries are patent. FARZAD is patent. Small fat-containing umbilical hernia with a small amount of fluid along the umbilicus. Mild pelvic a scites. Diffuse body wall anasarca. Sigmoid diverticulosis. No evidence of acute diverticulitis. No a bdominal or pelvic lymphadenopathy. Prominent inguinal lymph nodes likely reactive. RIGHT: Right common iliac artery is patent. External and internal iliac arteries are patent. Common f emoral artery and superficial femoral arteries are patent. Deep femoral artery is patent. Superficial femoral artery and popliteal arteries are patent. Popliteal artery is patent to the trifurcation. De nse calcification involving the calf arteries with poor three-vessel runoff distally. LEFT: Left common iliac artery is patent. External and internal iliac arteries are patent. Left commo n femoral and superficial femoral arteries are patent. Deep femoral artery is patent. Popliteal arter y is patent to the trifurcation. Densely calcified calf arteries with poor runoff to the ankle. CT/CT angio abd aorta runof [id number] IMPRESSION: 1. Normal caliber abdominal aorta with mild to moderate calcification. 2. Celiac and SMA are patent. Renal arteries are patent. Mild left renal arter y stenosis. 3. Bilateral iliac, femoral, and popliteal arteries are patent bilaterally wit hout flow-limiting stenosis. 4. Densely calcified calf arteries bilaterally with poor three-vessel runoff d istally. 5. Small right pleural effusion. 6. Cholelithiasis. 7. Hepatomegaly. 8. Mild ascites with diffuse body wall anasarca.
[2020-12-31] MEDS: iohexol 350 mg/mL 100 mL Btl IV (08:34)
== END 2020-12-31 07:47 | disposition home or self-care (01) ==
PROVIDERS: PCP Physician Assistant; Visit Provider Nurse Practitioner Family
DX: I73.9 Peripheral vascular disease, unspecified (principal); I70.1 Atherosclerosis of renal artery; J90 Pleural effusion, not elsewhere classified; K80.20 Calculus of gallbladder without cholecystitis without obstruction; R16.0 Hepatomegaly, not elsewhere classified; R18.8 Other ascites
CPT/HCPCS: 75635; Q9967

== ENCOUNTER 2021-01-04 14:24 | Inpatient (IN) | payer OTHER, SELFPAY ==
[2021-01-04] VITALS (7 sets, daily range): BP systolic 91–105; BP diastolic 68–78; PULSE 91–104; RESP 14–20; TEMP 36.5–36.6; O2SAT 92–100; BMI 27.9
--- NOTE | 2021-01-04 14:51 | XRR_ITS ---
PROCEDURE INFORMATION: Exam: XR Chest Exam date and time: 01/04/2021 2:51 PM Age: 65 years old Clinical indication: Dyspnea; Additional info: Chf/dyspnea/swelling TECHNIQUE: Imaging protocol: XR of the chest. Views: 1 view. COMPARISON: CR (CHEST, ) 04/13/2020 12:56 PM FINDINGS: Lungs: Lungs are clear. Pleural spaces: There is no pleural effusion or pneumothorax. Heart/Mediastinum: Stable prominent vessels in the sal bilaterally. There is mild enlargement of the cardiac silhouette. Bones/joints: Bones are unremarkable. XR/XR chest 1V portable [id number] IMPRESSION: No acute findings.
--- NOTE | 2021-01-04 14:53 | ECG_ITS ---
[facility] Test Date: 2021-01-04 Pat Name: Jayden Baldwin Department: Room: 250 Gender: Male Leaf Tier: : 1955 Requested By: Aaron Lopez Order Number: [id number] Som MD: Naheed Bautista M.D. Measurements Intervals [place] Rate: 99 P: 56 SD: 172 QRS: -65 QRSD: 124 T: 111 QT: 377 QTc: 486 Interpretive Statements SINUS RHYTHM POSSIBLE LEFT ATRIAL ENLARGEMENT [-0.1mV P WAVE IN V1/V2] INTRAVENTRICULAR CONDUCTION DELAY Left anterior fascicular block POSSIBLE ANTERIOR MYOCARDIAL INFARCTION, OF INDETERMINATE AGE INFERIOR MYOCARDIAL INFARCTION, PROBABLY OLD MODERATE T-WAVE ABNORMALITY, CONSIDER LATERAL ISCHEMIA Compared to ECG 12/23/2019 21:46:47 Sinus arrhythmia no longer present Myocardial infarct finding still present T-wave abnormality still present Possible ischemia still present Electronically Signed On 01-04-2021 21:06:59 CDT by Naheed Bautista M.D. [id number]
[2021-01-04] MEDS: FUROsemide 10 mg/mL SDV 4mL 40 MG IVP (15:20)
[2021-01-04 15:21] LABS: Basophils # 0.1 10^3/uL (0.0-0.1); Basophils % 0.8 %; Eosinophils % 0.6 %; Hematocrit 39.4 % (42.0-52.0); Hemoglobin 12.2 g/dL (11.7-16.6); Lymphocytes # 0.9 10^3/uL (0.8-4.8); Lymphocytes % 13.5 %; Mean Corpuscular Hemoglobin 28.6 pg (28.0-34.0); Mean Corpuscular Volume 92.3 fL (80-94); Mean Platelet Volume 10.4 fL (7.4-10.4); Monocytes # 0.6 10^3/uL (0.2-0.9); Monocytes % 9.1 %; Neutrophils # 4.97 10^3/uL (1.8-7.7); Neutrophils % 75.7 %; Nucleated Red Blood Cells % 0 %; Platelet Count 301 10^3/cmm (130-400); Red Blood Count 4.27 10^6/uL (4.1-5.3); Red Cell Distribution Width 18.2 % (12.1-15.1); White Blood Count 6.6 10^3/uL (4.0-10.0)
[2021-01-04 15:42] LABS: Troponin(5th) Baseline 32 ng/L (0-15)
[2021-01-04 15:43] LABS: Lactate (Lactic Acid level) 4.5 mmol/L (0.5-2.2)
[2021-01-04 15:55] LABS: Alanine Aminotransferase 43 U/L (0-41); Albumin Level 4.1 g/dL (3.5-5.2); Alkaline Phosphatase 146 IU/L (40-130); Anion Gap 19.7 (5-19); Aspartate Amino Transferase 50 U/L (0-40); Blood Urea Nitrogen 34 mg/dL (8-23); Calcium 9.2 mg/dL (8.5-10.5); Carbon Dioxide 27 mmol/L (22-29); Chloride 93 mmol/L (98-107); Globulin 3.2 g/dL (1.3-4.6); Glomerular Filtration Rate 55.6 mL/min (90-130); Glucose 163 mg/dL (65-115); Lipase 67 U/L (13-60); NT Pro B Type Natriuretic Pept 17686 pg/mL (0-125); Osmolality Calculated 291 mOsm/kg (285-295); Potassium 4.7 mmol/L (3.5-5.1); Sodium 135 mmol/L (136-145); Total Bilirubin 0.9 mg/dL (0.15-1.2); Total Protein 7.3 g/dL (6.6-8.7)
[2021-01-04 16:16] LABS: Add Urine Microscopic? NO; Charge for UA Resulting for Rev
[2021-01-04 16:22] LABS: Bilirubin Urine Neg (Negative); Blood Urine Neg (Negative); Glucose Urine UA 4+ (Normal); Ketones Urine Negative (Negative); Leukocyte Esterase Urine Negative (Negative); Nitrate Urine Negative (Negative); Protein Urine Neg (Negative); Specific Gravity, Urine 1.005 (1.005-1.030); Urine Appearance Clear (CLEAR); Urine Color Straw (Yellow); Urobilinogen Urine Norm (Negative); pH Urine 5 (5-7)
--- NOTE | 2021-01-04 16:53 | ECG_ITS ---
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 Measurements Intervals [place] Rate: 98 P: 51 [place]: 191 QRS: -65 QRSD: 134 T: 108 QT: 388 QTc: 496 Interpretive Statements SINUS RHYTHM WITH OCCASIONAL VENTRICULAR PREMATURE COMPLEXES POSSIBLE LEFT ATRIAL ENLARGEMENT MARKED LEFT AXIS DEVIATION [QRS AXIS < -30] INTRAVENTRICULAR CONDUCTION DELAY [130+ ms QRS DURATION] POSSIBLE ANTERIOR MYOCARDIAL INFARCTION,OF INDETERMINATE AGE Compared to ECG 12/23/2019 21:46:47 Ventricular premature complex(es) now present Left-axis deviation now present Intraventricular conduction delay now present T-wave abnormality no longer present Possible ischemia no longer present Myocardial infarct finding still present Electronically Signed On 01-05-2021 23:04:56 CDT by Naheed Bautista M.D. [id number]
--- NOTE | 2021-01-04 16:59 | P.HP_ITS ---
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 Patient noted dyspnea on exertion with orthopnea. Stated dry weight is around 187lb. Earlier today weight had increased to 206. Patient was additionally complaining of abdominal pain, particullary in left lower quadrant. This has been intermittently ongoing for the past few months. She was seen by Dr. Alcantar and had a EGD performed which per patient was negative. Recently noted to have dark tarry stools as well. Has been on aspirin and plavix. Patient was recently seen by cardiology during which time he was noted to have symptomatic hypotensive episodes for which core was discontinued. He was continued on Lasix 40 mg PO BID. Upon arrival to ER laboratory work up showed a WBC of 3.6, hemoglobin of 12.2, hematocrit of 39.4, and a platelets 301. Sodium of 135, potassium of 4.7, chloride of 93, Bun of 34 and a creatinine of 1.3 which was an increase from 1.2 on 12/24. Lactic acid was noted to be 4.5 - repeat of 4.0. AST of 50 , ALT of 43, ALP of 146. Troponin T of 32 baseline, 120 min of 33.27. Delta of 1.27. ProBNP of 17,686 which was an increase from 12,723. Lipase of 67. UA negative. Chest x-ray did not show any acute abnormality. In ER patient was given Lasix 40 mg IV x 1. CT abd/pelvis was performed which showed non- dilated small bowel loops containing air-fluid levels suggestive of possible ileum, mild diverticulosis in the sigmoid colon, small ascites, gallstone/sludge. Review of Systems General: Reports: 10 or more systems reviewed and unremarkable except in HPI and below Medications/Allergies Home Medications Medication Instructions Recorded Confirmed Last Taken Type Jardiance 25 mg PO DAILY@0900 12/24/19 01/04/21 01/04/21 History atorvastatin 40 mg PO BEDTIME@199912/24/19 01/04/21 01/03/21 History pioglitazone [Actos] 30 mg PO DAILY 0601/04/21 01/04/21 History Trulicity 1.5 mg SUBCUT Q7D 03/03/20 01/04/21 01/04/21 History Cinnamon 1 cap PO DAILY@0900 04/13/20 01/04/21 01/04/21 History metformin 1,000 mg PO BID@0900,199904/13/20 01/04/21 01/04/21 History omega 0-qam-qcn-fish oil [Fish Oil] 1 cap PO BID@09,199904/13/20 01/04/21 01/04/21 History Adult Aspirin Regimen 81 mg PO DAILY@89901/04/21 01/04/21 01/04/21 History albuterol sulfate See Rx Instructions .ROUTE .COMPLEX 01/04/21 01/04/21 01/04/21 History clopidogrel 75 mg PO DAILY@89901/04/21 01/04/21 01/04/21 History furosemide 40 mg PO DAILY@89901/04/21 01/04/21 01/04/21 History pantoprazole 40 mg PO DAILY@89901/04/21 01/04/21 01/04/21 History spironolactone 25 mg PO DAILY@89901/04/21 01/04/21 01/04/21 History vit C,F-Yb-dwdod-lutein-zeaxan 1 tab PO BID@0900,199901/04/21 01/04/21 01/04/21 History [PreserVision AREDS-2] Allergies Allergy/AdvReac Type Severity Reaction Status Date / Time No Known Allergies Allergy Verified 12/24/20 13:47 PFSH Acute PFSH: Medical History (Updated 01/04/21 @ 18:18 by Ilene Block MD) CHF (congestive heart failure) Coronary artery disease Dyslipidemia Peripheral arterial disease Smoker Smoker Type 2 diabetes mellitus Surgical History H/O shoulder surgery H/O skin graft Family History Denies family history of Hyperlipidemia Lung disease Hypertension Social History Smoking and tobacco status: heavy tobacco smoker cigarettes [ Other cigarette details: 1.5 pack per day for last 40 years ] Alcohol intake: current Household members: significant other Housing: House Current occupational status: employed 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 Vitals/I&O/Wt Last Vital Signs Temp 97.7 F 01/04/21 14:38 Pulse 101 H 01/04/21 16:07 Resp 20 H 01/04/21 16:07 BP 102/74 01/04/21 16:07 Pulse Ox 93 01/04/21 15:45 Weight last 48 hrs Weight 93.44 kg Physical Exam Narrative: EXAM NARRATIVE: General : Alert, Awake oriented x 3, NAD HEENT : Grossly unremarkable CVS : RRR Chest : CTABL Abd: Soft, NT, ND Ext : 3+ bilateral LE edema Data : 01/04/21 15:13 01/04/21 15:13 A&P Assessment and plan (1) Acute combined systolic (congestive) and diastolic (congestive) heart failure: Status: Acute (2) Acute renal failure: Status: Acute (3) Lactic acidosis: Status: Acute (4) Coronary artery disease: Status: Acute Qualifiers: Associated angina: without angina Coronary Disease-Associated Artery/Lesion type: wiyot artery [place] vs. transplanted heart: wiyot heart Qualified Code(s): I25.10 - Atherosclerotic heart disease of wiyot coronary artery without angina pectoris (5) Dyslipidemia: Status: Acute (6) Hypertension: Status: Acute (7) Peripheral arterial disease: Status: Acute Acute on chronic combined HF exacerbation Last known EF of 37%, Grade 3/4 DD on 09/10/20 / Anasarca May consider limited ECHO - LV assessment Continue Lasix 40 mg IV BID Potassium as needed 1800 Fluid restriction Consider Cardiology consult Chest -xray - no acute findings. Daily weight / Strict I&O Acute Renal Failure Component of Cardiorenal Cr increased to 1.3 BMP in am Cautious diuresis Renall dose meds. Abdominal Pain w/ dark tarry stools - suspected GI bleed CT abd/pelvis - possible ileus Hold aspirin and plavix Monitor h/h Stool for occult blood Obtain recent EGD records Consider surgery consult Coronary Artery Disease Recent Cath - severe CAD with two-vessel disease, first obtuse marginal branch segment s/p baloon /JAD on 12/25/19 HOLD - > Aspirin 81 mg PO daily - Plavix 75 mg PO daily Diabetes Mellitus Sliding scale insulin Will d/c Actos - due to HF Hold metformin A1c in am Hyperlipidemia Lipitor 40 mg PO daily DVT ppx SCDs No heparin due to possible gi bleed. Attestations Medical Necessity Statement*: Will require over two midnight stay in hospital for eval and treatment of HF excerbation. Time Spent in Patient Care: Greater than 35 minutes (>than 50% of time spent in counselling and/or direct pt care on unit) . Coding Level of Care Code Acute Buzzsaw Operator for Allison Adam Diagnoses Acute combined systolic (congestive) and diastolic (congestive) heart failure I50.41 Acute renal failure N17.9 Lactic acidosis E87.2 Coronary artery disease I25.10 Associated angina: without angina Coronary Disease-Associated Artery/Lesion type: wiyot artery [place] vs. transplanted heart: wiyot heart Dyslipidemia E78.5 Hypertension I10 Peripheral arterial disease I73.9
--- NOTE | 2021-01-04 17:07 | W.ED.SOB ---
HPI - SOB/Dyspnea General: Chief Complaint: Shortness of Breath/Dyspnea Stated Complaint: Weakness, Edema, Stomach Pains, Dark Stool Time Seen by Provider: 01/04/21 14:51 History of Present Illness: HPI Narrative: Patient is a 65-year-old male with past medical history congestive heart failure who comes to the ER complaining of increasing swelling in his lower extremities for the past 2 weeks. He says he has also had abdominal swelling as well. Patient's blood pressure was 95/77 in triage. He also complains of 2 days of dark stools. No bright red blood. He does have a history of heartburn but says he got an EGD recently which showed no disease. He is also having increasing weakness as the swelling becomes worse. MD elicited complaint: shortness of breath Pertinent past history: congestive heart failure Timing: constant Severity: moderate Exacerbating factors: lying flat, exertion and movement Relieving factors: nothing Known history of: congestive heart failure Associated symptoms: Reports no associated symptoms; Deny abdominal pain, chest pain, dizziness, extremity pain, orthopnea, palpitations or polyuria Review of Systems General: Reports: 10 or more systems reviewed and unremarkable except in HPI and below Const: Denies: fatigue Eyes: Denies: change in vision, blurry vision or eye redness ENMT: Denies: throat pain, swelling of lips/tongue, ear or mastoid pain or nasal congestion Card: Denies: chest pain, palpitations, irregular heart rhythm, edema, dyspnea on exertion or orthopnea Resp: Reports: dyspnea; Denies: productive cough or non-productive cough GI: Denies: abdominal pain, diarrhea or GI cramping : Denies: flank pain, urinary frequency or urinary urgency Musc: Denies: neck pain, back pain, extremity pain, joint pain, joint redness, limited range of motion or muscle weakness Skin/Breast: Reports: other (Extremity edema); Denies: rash, pruritus, erythema, skin pain or skin tenderness Neuro: Denies: headache(s), numbness in extremities, weakness in extremities, sensory changes, difficulty walking, dizziness, confusion or Slurred speech present Psych: Denies: anxiety or depression Endo: Denies: polyuria All/Imm: Denies: urticaria, throat swelling or tongue swelling PFS ED PFSH: Medical History (Updated 01/04/21 @ 17:12 by Aaron Lopez MD) CHF (congestive heart failure) Coronary artery disease Dyslipidemia Peripheral arterial disease Smoker Smoker Type 2 diabetes mellitus Surgical History H/O shoulder surgery H/O skin graft Family History Denies family history of Hyperlipidemia Lung disease Hypertension Social History Smoking and tobacco status: heavy tobacco smoker cigarettes [ Other cigarette details: 1.5 pack per day for last 40 years ] Alcohol intake: current Household members: significant other Housing: House Current occupational status: employed 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 Physical Exam Const: COMMON NORMALS: no acute distress, average body habitus, patient oriented x3, no limitations, healthy appearing, alert and well nourished GENERAL APPEARANCE: cooperative, comfortable, well kempt and well developed ORIENTATION/CONSCIOUSNESS: Yes awake, Yes oriented to person, Yes oriented to place and Yes oriented to time HENMT: COMMON NORMALS: normocephalic, external ears normal and Normal external nose present HEAD & SCALP: normal to inspection and normocephalic NOSE: Normal external nose present EXTERNAL EAR: Yes external ears normal MOUTH: Normal oral and palatal mucosa present THROAT: posterior oropharynx normal Eye: COMMON NORMALS: Equal, round and reactive pupils present and EOMs intact bilaterally GENERAL EYE: appearance normal, both eyes and all related structures PUPIL: Yes Equal, round and reactive pupils present Neck/C-Spine: COMMON NORMALS: full ROM, no lymphadenopathy, no meningeal signs and no JVD GENERAL: Yes normal visual inspection Lymph: LYMPHATIC: no lymphadenopathy noted Chest: COMMONS NORMALS: normal inspection of the chest and normal palpation of entire chest wall Resp: COMMON NORMALS: normal respiratory effort, No retractions, No use of accessory muscles, clear to auscultation bilaterally and percussion normal EFFORT & INSPECTION: Yes able to speak in complete sentences AUSCULTATION: clear to auscultation bilaterally PERCUSSION: percussion normal Cardio: COMMON NORMALS: no JVD, regular rate, regular rhythm, S1 normal heart sound present, S2 normal heart sound present and Peripheral pulses 2+ throughout RATE: regular rate RHYTHM: regular rhythm HEART SOUNDS: S1 normal heart sound present and S2 normal heart sound present PERIPHERAL PULSES: Peripheral pulses 2+ throughout GI: COMMON NORMALS: Normal to inspection, nondistended, normoactive bowel sounds present, Soft to palpation, non-tender and no masses INSPECTION: Yes normal to inspection PALPATION: Yes Soft to palpation : COMMON NORMALS: Yes no CVA tenderness BLADDER/KIDNEY EXAM: Yes no CVA tenderness Back/Pelvis: COMMON NORMALS: no CVA tenderness, thoracic and lumbar spine normal to inspection, no thoracic nor lumbar tenderness and thoraco-lumbar ROM normal Extremity: COMMON NORMALS: normal to inspection, full ROM, capillary refill normal, no joint enlargement and no pedal edema NARRATIVE EXTREMITY EXAM: 3+ pitting edema with large edema to his legs bilaterally. GENERAL: Yes normal exam except as noted Neuro: COMMON NORMALS: patient oriented x3, CN's II-XII intact bilaterally, moves all extremities, no focal motor deficits, no sensory deficits noted and gait normal SENSORIUM/ORIENTATION: Yes alert, Yes oriented to person, Yes oriented to place and Yes oriented to time MENINGEAL SIGNS: Yes no meningeal signs Psych: COMMON NORMALS: mental status grossly normal, Normal thought process present, cooperative, normal affect and speech normal APPEARANCE: Yes well kempt ATTITUDE: Yes calm SPEECH: Yes normal speech THOUGHT PROCESS: Normal thought process present Skin: COMMON NORMALS: no rashes or lesions noted GENERAL SKIN EXAM: no rashes or lesions noted Course Vital Signs: Vital signs: Vital Signs Temperature 97.7 F 01/04/21 14:38 Pulse Rate 101 H 01/04/21 16:07 Respiratory Rate 20 H 01/04/21 16:07 Blood Pressure 102/74 01/04/21 16:07 Pulse Oximetry 93 01/04/21 15:45 MDM - SOB/Dyspnea MDM Narrative: Medical decision making narrative: Patient comes into the ER with increasing swelling lower extremities, fatigue, weakness, mild shortness of breath. His BNP is also elevated as well as severely edematous legs. He is in a CHF exacerbation. Given 40 IV Lasix to get things started. He also has an acute kidney injury possibly from cardiorenal syndrome. Also his lactic acid is 4.5 with no known cause of infection. Discussed with Dr. Block who accepts for inpatient care Lab Data: Labs: Lab Results 01/04/21 01/04/21 01/04/21 Range/Units 15:13 15:13 15:13 WBC 6.6 (4.0-10.0) 10^3/ uL RBC 4.27 (4.1-5.3) 10^6/u L Hgb 12.2 (11.7-16.6) g/dL Hct 39.4 L (42.0-52.0) % MCV 92.3 (80-94) fL MCH 28.6 (28.0-34.0) pg MCHC 31.0 (30.0-36.0) g/dL RDW 18.2 H (12.1-15.1) % Plt Count 301 (130-400) 10^3/c mm MPV 10.4 (7.4-10.4) fL Neut % (Auto) 75.7 % Lymph % (Auto) 13.5 % [place] % (Auto) 9.1 % Eos % (Auto) 0.6 % Baso % (Auto) 0.8 % Neut # (Auto) 4.97 (1.8-7.7) 10^3/u L Lymph # (Auto) 0.9 (0.8-4.8) 10^3/u L [place] # (Auto) 0.6 (0.2-0.9) 10^3/u L Eos # (Auto) 0.0 (0.0-0.8) 10^3/u L Baso # (Auto) 0.1 (0.0-0.1) 10^3/u L Nucleated RBC % (a uto) 0 % Nucleated RBCs # 0.0 /100WBC Sodium 135 L (136-145) mmol/L Potassium 4.7 (3.5-5.1) mmol/L Chloride 93 L (98-107) mmol/L Carbon Dioxide 27 (22-29) mmol/L Anion Gap 19.7 H (5-19) BUN 34 H (8-23) mg/dL Creatinine 1.3 H (0.7-1.2) mg/dL GFR Calculation 55.6 L (90-130) mL/min Glucose 163 H (65-115) mg/dL Calculated Osmolal ity 291 (285-295) mOsm/k g Lactate 4.5 H* (0.5-2.2) mmol/L Calcium 9.2 (8.5-10.5) mg/dL Total Bilirubin 0.9 (0.15-1.2) mg/dL AST 50 H (0-40) U/L ALT 43 H (0-41) U/L Alkaline Phosphata se 146 H (40-130) IU/L Troponin T Baselin e (0-15) ng/L NT-Pro-B Natriuret Pep 54149 H (0-125) pg/mL Total Protein 7.3 (6.6-8.7) g/dL Albumin 4.1 (3.5-5.2) g/dL Globulin 3.2 (1.3-4.6) g/dL Lipase 67 H (13-60) U/L Urine Color (Yellow) Urine Appearance (CLEAR) Urine pH (5-7) Ur Specific Gravit y (1.005-1.030) Urine Protein (Negative) Urine Glucose (UA) (Normal) Urine Ketones (Negative) Urine Blood (Negative) Urine Nitrate (Negative) Urine Bilirubin (Negative) Urine Urobilinogen (Negative) mg/dL Ur Leukocyte Aurea ase (Negative) 01/04/21 01/04/21 Range/Units 15:13 16:07 WBC (4.0-10.0) 10^3/ uL RBC (4.1-5.3) 10^6/u L Hgb (11.7-16.6) g/dL Hct (42.0-52.0) % MCV (80-94) fL MCH (28.0-34.0) pg MCHC (30.0-36.0) g/dL RDW (12.1-15.1) % Plt Count (130-400) 10^3/c mm MPV (7.4-10.4) fL Neut % (Auto) % Lymph % (Auto) % [place] % (Auto) % Eos % (Auto) % Baso % (Auto) % Neut # (Auto) (1.8-7.7) 10^3/u L Lymph # (Auto) (0.8-4.8) 10^3/u L [place] # (Auto) (0.2-0.9) 10^3/u L Eos # (Auto) (0.0-0.8) 10^3/u L Baso # (Auto) (0.0-0.1) 10^3/u L Nucleated RBC % (a uto) % Nucleated RBCs # /100WBC Sodium (136-145) mmol/L Potassium (3.5-5.1) mmol/L Chloride (98-107) mmol/L Carbon Dioxide (22-29) mmol/L Anion Gap (5-19) BUN (8-23) mg/dL Creatinine (0.7-1.2) mg/dL GFR Calculation (90-130) mL/min Glucose (65-115) mg/dL Calculated Osmolal ity (285-295) mOsm/k g Lactate (0.5-2.2) mmol/L Calcium (8.5-10.5) mg/dL Total Bilirubin (0.15-1.2) mg/dL AST (0-40) U/L ALT (0-41) U/L Alkaline Phosphata se (40-130) IU/L Troponin T Baselin e 32 H (0-15) ng/L NT-Pro-B Natriuret Pep (0-125) pg/mL Total Protein (6.6-8.7) g/dL Albumin (3.5-5.2) g/dL Globulin (1.3-4.6) g/dL Lipase (13-60) U/L Urine Color Straw (Yellow) Urine Appearance Clear (CLEAR) Urine pH 5 (5-7) Ur Specific Gravit y 1.005 (1.005-1.030) Urine Protein Neg (Negative) Urine Glucose (UA) 4+ H (Normal) Urine Ketones Negative (Negative) Urine Blood Neg (Negative) Urine Nitrate Negative (Negative) Urine Bilirubin Neg (Negative) Urine Urobilinogen Norm (Negative) mg/dL Ur Leukocyte Aurea ase Negative (Negative) Discharge Plan Discharge Patient Disposition: Admitted As Inpatient Clinical Impression: CHF (congestive heart failure), Complaint of melena Condition: Stable Coding Level of Care Code ED 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
[2021-01-04 17:45] LABS: Troponin 5 2HR 33.27 ng/L (0-15); Troponin 5 2HR Delta 1.27 ABS# (0-10)
--- NOTE | 2021-01-04 19:08 | CTR_ITS ---
PROCEDURE INFORMATION: Exam: CT Abdomen And Pelvis Without Contrast Exam date and time: 01/04/2021 7:08 PM Age: 65 years old Clinical indication: Patient HX: Dark tarry stool; Additional info: Black, tarry stools TECHNIQUE: Imaging protocol: Computed tomography of the abdomen and pelvis without contrast. Radiation optimization: All CT scans at this facility use at least one of these dose optimization techniques: automated exposure control; mA and/or kV adjustment per patient size (includes targeted exams where dose is matched to clinical indication); or iterative reconstruction. Other contrast: Oral, Omni 300 20ml, 20ml in 450ml water; COMPARISON: CT angio abd aorta runof [id number] 12/31/2020 8:28 AM RADIATION DOSE METRICS: Total DLP (mGy-cm): 1910.96 FINDINGS: Lungs: Some strandy opacities are present right lung base likely representing atelectasis. Liver: Normal. No mass. Gallbladder and bile ducts: Hyperdensities are seen in the dependent portion gallbladder compatible with tiny gallstones and gallbladder sludge. Pancreas: Normal. No ductal dilation. Spleen: Normal. No splenomegaly. Adrenal glands: Normal. No mass. Kidneys and ureters: Strandy opacities are present in the perinephric fascia bilaterally most probably representing chronic scarring. Stomach and bowel: Diverticula are present on the sigmoid colon. There are no inflammatory changes present to suggest diverticulitis. Nondilated small bowel loops are seen containing air-fluid levels, findings could represent a diffuse ileus. Appendix: The appendix is visualized and is normal in configuration. Intraperitoneal space: There is a small volume of ascites present. Vasculature: Calcifications are seen within the coronary arteries. Calcifications are present within the thoracic and abdominal aorta, iliac arteries and femoral arteries bilaterally branches of the celiac and superior mesenteric arteries. Lymph nodes: Unremarkable. No enlarged lymph nodes. Urinary bladder: Unremarkable as visualized. Reproductive: Unremarkable as visualized. Bones/joints: Unremarkable. No acute fracture. Soft tissues: Small umbilical hernia containing some fat and fluid is again seen. CT/CT abdomen pelvis wo con [id number] IMPRESSION: 1. Nondilated small bowel loops containing air-fluid levels could represent a diffuse ileus. 2. Mild diverticulosis the sigmoid colon 3. Small volume of ascites 4. Small gallstones and/or sludge. 5. Small right pleural effusion Radiation Dose CTDIVOL = (mGy): DLP = 1910.96 (mGy-cm)
[2021-01-04 21:15] LABS: Troponin 5 6HR 34.26 ng/L (0-15); Troponin 5 6HR Delta 2.26 ng/L (0-12)
[2021-01-04] MEDS: iohexol 300 mg/mL 50 mL Btl PO (21:48)
[2021-01-04] MEDS: atorvastatin 40 mg Tablet PO (22:10)
[2021-01-05] VITALS (9 sets, daily range): BP systolic 94–99; BP diastolic 54–67; PULSE 86–100; RESP 16–18; TEMP 36.2–36.9; O2SAT 92–100
[2021-01-05 03:59] LABS: Basophils # 0.1 10^3/uL (0.0-0.1); Basophils % 0.9 %; Eosinophils # 0.1 10^3/uL (0.0-0.8); Eosinophils % 1.5 %; Hematocrit 36.1 % (42.0-52.0); Hemoglobin 11.3 g/dL (11.7-16.6); Lymphocytes # 0.9 10^3/uL (0.8-4.8); Lymphocytes % 15.4 %; Mean Corpuscular HGB Conc 31.3 g/dL (30.0-36.0); Mean Corpuscular Hemoglobin 28.4 pg (28.0-34.0); Mean Corpuscular Volume 90.7 fL (80-94); Mean Platelet Volume 10.7 fL (7.4-10.4); Monocytes # 0.6 10^3/uL (0.2-0.9); Monocytes % 11.3 %; Neutrophils % 70.7 %; Nucleated Red Blood Cells % 0 %; Platelet Count 276 10^3/cmm (130-400); Red Blood Count 3.98 10^6/uL (4.1-5.3); Red Cell Distribution Width 18.1 % (12.1-15.1); White Blood Count 5.5 10^3/uL (4.0-10.0)
[2021-01-05 04:27] LABS: Alanine Aminotransferase 42 U/L (0-41); Albumin Level 3.8 g/dL (3.5-5.2); Alkaline Phosphatase 134 IU/L (40-130); Anion Gap 15.5 (5-19); Aspartate Amino Transferase 49 U/L (0-40); Blood Urea Nitrogen 29 mg/dL (8-23); Calcium 9.1 mg/dL (8.5-10.5); Carbon Dioxide 29 mmol/L (22-29); Chloride 97 mmol/L (98-107); Creatinine Clr Calc Pharmacy 80.5446; Glomerular Filtration Rate 67.4 mL/min (90-130); Glucose 96 mg/dL (65-115); Magnesium 1.9 mg/dL (1.7-2.3); NT Pro B Type Natriuretic Pept 12559 pg/mL (0-125); Osmolality Calculated 290 mOsm/kg (285-295); Potassium 4.5 mmol/L (3.5-5.1); Sodium 137 mmol/L (136-145); Total Bilirubin 1.3 mg/dL (0.15-1.2); Total Protein 6.8 g/dL (6.6-8.7)
[2021-01-05 06:29] LABS: Glucose Point of Care 126 mg/dL (70-110)
[2021-01-05 07:28] LABS: Glucose Point of Care 102 mg/dL (70-110)
[2021-01-05] MEDS: FUROsemide 10 mg/mL SDV 4mL 40 MG IVP (07:50)
[2021-01-05] MEDS: pantoprazole DR 40 mg Tablet PO (07:50)
[2021-01-05] MEDS: spironolactone 25 mg Tablet PO (07:50)
--- NOTE | 2021-01-05 11:59 | P.PN_ITS ---
Subjective Subjective: Interval history: edema improved. had 3 days of black stool, now normal for 2 days. Medications: Reviewed: Yes Vitals/I&O/Wt Last Vital Signs Temp 97.8 F 01/05/21 11:32 Pulse 93 01/05/21 11:32 Resp 18 01/05/21 11:32 BP 94/62 01/05/21 11:32 Pulse Ox 97 01/05/21 11:32 01/04/21 01/05/21 01/05/21 22:59 06:59 14:59 Intake Total 240 / 240 Output Total 0 / 0 0 / 0 Balance 0 / 0 0 / 0 240 / 240 Weight last 48 hrs Weight 98.248 kg Weight 96.751 kg Weight 93.44 kg Physical Exam Narrative: EXAM NARRATIVE: N a and o times 3, NAD H: reg without sign murmur, click gallop or rub L diminished throughtout, wheezes right base A no edmea, soft, nt/nd nl BS E: 2-3+ edema b/l le Data : 01/05/21 03:30 01/05/21 03:30 A&P Additional A&P Information A&P Assessment and plan (1) Acute combined systolic (congestive) and diastolic (congestive) heart failure- on lasix 40 mg IVP q 12h with good results. Will continue. BNP 12k down from 17k. Last known EF of 37%, Grade 3/4 DD on 09/10/20 / Anasarca Continue Lasix 40 mg IV BID Potassium as needed 1800 Fluid restriction Consider Cardiology consult Chest -xray - no acute findings. Daily weight / Strict I&O (2) Acute renal failure: improved, now noraml sCr with GFR >60 (3) Lactic acidosis: was 4 yesterday (4) Coronary artery disease: on meds;Recent Cath - severe CAD with two-vessel disease, first obtuse marginal branch segment s/p baloon /JAD on 12/25/19 HOLD - > Aspirin 81 mg PO daily - Plavix 75 mg PO daily (5) Dyslipidemia:on lipitor (6) Hypertension: stable on meds. (7) Peripheral arterial disease: (8) Abdominal Pain w/ dark tarry stools - suspected GI bleed; now resolved. CT abd/pelvis - possible ileus Hold aspirin and plavix Monitor h/h Stool for occult blood Obtain recent EGD records start PPI? (9)Diabetes Mellitus Sliding scale insulin Will d/c Actos - due to HF Hold metformin A1c in am DVT ppx SCDs No heparin due to possible gi bleed. Attestations Medical Necessity Statement*: requires further Iv diuresis and therefore greater than 2 MN stay. Coding Level of Care Code Acute Education Rn for Allison Adam
[2021-01-05 12:24] LABS: Glucose Point of Care 175 mg/dL (70-110)
[2021-01-05 17:07] LABS: Glucose Point of Care 111 mg/dL (70-110)
[2021-01-05] MEDS: FUROsemide 10 mg/mL SDV 10mL 80 MG IVP (17:49)
--- NOTE | 2021-01-05 18:12 | PC.RESP ---
Smoking Cessation information sent to patient.
--- NOTE | 2021-01-05 18:42 | PC.NURSE ---
discussed patients blood pressure with Dr. Dallas gaitan given to administer 80mg IV lasix.
[2021-01-05] MEDS: atorvastatin 40 mg Tablet PO (20:38)
[2021-01-05 21:19] LABS: Glucose Point of Care 214 mg/dL (70-110)
[2021-01-06] VITALS (11 sets, daily range): BP systolic 89–150; BP diastolic 56–70; PULSE 61–95; RESP 15–18; TEMP 36.4–36.8; O2SAT 93–98
[2021-01-06] MEDS: FUROsemide 10 mg/mL SDV 10mL 80 MG IVP (05:08)
[2021-01-06 06:55] LABS: Glucose Point of Care 111 mg/dL (70-110)
[2021-01-06] MEDS: spironolactone 25 mg Tablet PO (08:47)
[2021-01-06] MEDS: pantoprazole DR 40 mg Tablet PO (08:48)
[2021-01-06 09:07] LABS: Anion Gap 16.5 (5-19); Blood Urea Nitrogen 30 mg/dL (8-23); Calcium 8.7 mg/dL (8.5-10.5); Carbon Dioxide 32 mmol/L (22-29); Chloride 94 mmol/L (98-107); Glomerular Filtration Rate 67.4 mL/min (90-130); Glucose 123 mg/dL (65-115); Osmolality Calculated 294 mOsm/kg (285-295); Potassium 4.5 mmol/L (3.5-5.1); Sodium 138 mmol/L (136-145)
--- NOTE | 2021-01-06 11:10 | PC.NURSE ---
Bowel movement Patient stated on 01/05 he had a normal bowel movement color brown
[2021-01-06 11:29] LABS: Glucose Point of Care 179 mg/dL (70-110)
[2021-01-06] MEDS: metOLazone 5 MG Tablet PO (12:06)
[2021-01-06] MEDS: bumetanide 0.25 mg/mL SDV 10 mL 2 MG IV (12:07)
--- NOTE | 2021-01-06 15:56 | PM.PN ---
Subjective Subjective: Interval history: seen lying in bed with head up talking with neighbor in bed next to him. He is in good spirits. Says the increased lasix dose has helped. Asking how to prevent in future.. Medications: Reviewed: Yes Vitals/I&O/Wt Last Vital Signs Temp 97.6 F 01/06/21 11:51 Pulse 85 01/06/21 11:51 Resp 18 01/06/21 11:51 BP 89/56 01/06/21 11:51 Pulse Ox 98 01/06/21 11:51 01/06/21 01/06/21 01/06/21 06:59 14:59 22:59 Intake Total 960 / 960 Output Total 250 / 1250 400 / 400 Balance -250 / -530 560 / 560 Weight last 48 hrs Weight 97.296 kg Weight 98.248 kg Weight 96.751 kg Physical Exam Narrative: EXAM NARRATIVE: N a and o times 3, NAD H: reg without sign murmur, click gallop or rub L diminished throughtout, wheezes right base A no edmea, soft, nt/nd nl BS E: 2-3+ edema b/l le - no sign change today Data : 01/05/21 03:30 01/06/21 08:31 A&P Assessment and plan (1) Acute combined systolic (congestive) and diastolic (congestive) heart failure: Status: Acute (2) Acute renal failure: Status: Acute (3) Lactic acidosis: Status: Acute (4) Coronary artery disease: Status: Acute Qualifiers: Coronary Disease-Associated Artery/Lesion type: [place] artery [place] vs. transplanted heart: [place] heart Associated angina: without angina Qualified Code(s): I25.10 - Atherosclerotic heart disease of [place] coronary artery without angina pectoris (5) Dyslipidemia: Status: Acute (6) Hypertension: Status: Acute (7) Peripheral arterial disease: Status: Acute Acute on chronic combined HF exacerbation Last known EF of 37%, Grade 3/4 DD on 09/10/20 / Anasarca Last night increased Lasix to 80 mg IV BID- no significant results Changed to bumex 2 mg bid and added zaroxyolyn today. follow BMP/MG Potassium as needed 1800 Fluid restriction Daily weight / Strict I&O Acute Renal Failure improved with diuresis. Needed more filtration. will follow and push diuresis until sCr rises. Abdominal Pain w/ dark tarry stools - suspected GI bleed CT abd/pelvis - reported as possible ileus but having stool and now normal. Also saw GB sludge, distal diverticulosis, mild ascites and righth pleural effusion. Hold aspirin and plavix another day Coronary Artery Disease Recent Cath - severe CAD with two-vessel disease, first obtuse marginal branch segment s/p baloon /JAD on 12/25/19 HOLD - > Aspirin 81 mg PO daily - Plavix 75 mg PO daily Diabetes Mellitus Sliding scale insulin Will d/c Actos - due to HF Hold metformin A1c ? ordered on admission. No result. Will resume metformin. Hyperlipidemia Lipitor 40 mg PO daily DVT ppx SCDs No heparin due to possible gi bleed. Would rather restart DAPT. Attestations Medical Necessity Statement*: severe anasarca requires IV medication and close monitoring at risk for event related to diuresis. Coding Level of Care Code Acute Anesthesiologist Assistant for Allison Adam Diagnoses Acute combined systolic (congestive) and diastolic (congestive) heart failure I50.41 Acute renal failure N17.9 Lactic acidosis E87.2 Coronary artery disease I25.10 Coronary Disease-Associated Artery/Lesion type: [place] artery [place] vs. transplanted heart: [place] heart Associated angina: without angina Dyslipidemia E78.5 Hypertension I10 Peripheral arterial disease I73.9
[2021-01-06 17:28] LABS: Glucose Point of Care 172 mg/dL (70-110)
[2021-01-06 21:08] LABS: Glucose Point of Care 122 mg/dL (70-110)
[2021-01-06] MEDS: atorvastatin 40 mg Tablet PO (21:27)
[2021-01-07] VITALS (11 sets, daily range): BP systolic 98–104; BP diastolic 64–71; PULSE 85–99; RESP 16–17; TEMP 36.3–36.9; O2SAT 94–100
[2021-01-07] MEDS: metOLazone 5 MG Tablet PO (04:46)
[2021-01-07] MEDS: bumetanide 0.25 mg/mL SDV 10 mL 2 MG IV ×2 (04:51→13:07)
[2021-01-07 06:30] LABS: Glucose Point of Care 119 mg/dL (70-110)
[2021-01-07] MEDS: pantoprazole DR 40 mg Tablet PO (08:04)
[2021-01-07] MEDS: spironolactone 25 mg Tablet PO (08:05)
[2021-01-07 10:35] LABS: Glucose Point of Care 221 mg/dL (70-110)
[2021-01-07 12:10] LABS: Anion Gap 14.3 (5-19); Blood Urea Nitrogen 31 mg/dL (8-23); Calcium 9.2 mg/dL (8.5-10.5); Carbon Dioxide 34 mmol/L (22-29); Chloride 88 mmol/L (98-107); Glucose 158 mg/dL (65-115); Magnesium 2.1 mg/dL (1.7-2.3); Osmolality Calculated 284 mOsm/kg (285-295); Potassium 4.3 mmol/L (3.5-5.1); Sodium 132 mmol/L (136-145)
--- NOTE | 2021-01-07 16:16 | P.PN_ITS ---
Subjective Subjective: Interval history: seen sitting in chair about to eat lunch. present. Both are smiling and looking more relaxed. . Knows he is diuresing more. Medications: Reviewed: Yes Vitals/I&O/Wt Last Vital Signs Temp 97.9 F 01/07/21 16:00 Pulse 99 01/07/21 16:00 Resp 17 01/07/21 16:00 BP 101/70 01/07/21 16:00 Pulse Ox 99 01/07/21 16:00 01/07/21 01/07/21 01/07/21 06:59 14:59 22:59 Intake Total 275 / 1595 480 / 480 Output Total 1025 / 2175 3000 / 3000 Balance -750 / -580 -2520 / -2520 Weight last 48 hrs Weight 91.716 kg Weight 97.296 kg Physical Exam Narrative: EXAM NARRATIVE: N a and o times 3, NAD H: reg without sign murmur, click gallop or rub L diminished throughtout, wheezes right base A no edmea, soft, nt/nd nl BS E: 2-3+ edema b/l le - no sign edema in thigh today. more 'doughy' in le. improved Data : 01/05/21 03:30 01/07/21 11:28 A&P Assessment and plan (1) Acute combined systolic (congestive) and diastolic (congestive) heart failure: Status: Acute (2) Acute renal failure: Status: Acute (3) Lactic acidosis: Status: Acute (4) Coronary artery disease: Status: Acute Qualifiers: Coronary Disease-Associated Artery/Lesion type: [place] artery [place] vs. transplanted heart: [place] heart Associated angina: without angina Qualified Code(s): I25.10 - Atherosclerotic heart disease of [place] coronary artery without angina pectoris (5) Dyslipidemia: Status: Acute (6) Hypertension: Status: Acute (7) Peripheral arterial disease: Status: Acute Acute on chronic combined HF exacerbation Last known EF of 37%, Grade 3/4 DD on 09/10/20 / Anasarca Last night increased on bumex 2 mg Ivp bid and zaroxyolyn. down 2 l in 24 hr. follow BMP/MG Potassium as needed 1800 Fluid restriction Daily weight / Strict I&O Acute Renal Failure improved with diuresis. Needed more filtration. bun/scr stable. cont current therapy. Abdominal Pain w/ dark tarry stools - suspected GI bleed CT abd/pelvis - reported as possible ileus but having stool and now normal. Also saw GB sludge, distal diverticulosis, mild ascites and righth pleural effusion. no further blood. restart ASA then plavix. Coronary Artery Disease Recent Cath - severe CAD with two-vessel disease, first obtuse marginal branch segment s/p baloon /JAD on 12/25/19 HOLD - > Aspirin 81 mg PO daily - Plavix 75 mg PO daily Diabetes Mellitus Sliding scale insulin Will d/c Actos - due to HF Hold metformin A1c ? ordered on admission. No result. Will resume metformin. Hyperlipidemia Lipitor 40 mg PO daily DVT ppx SCDs No heparin due to possible gi bleed. Would rather restart DAPT. Attestations Medical Necessity Statement*: requiring iv diuresis due to edema in bowels causing inability to absorb oral diuretics Coding Level of Care Code Acute Show Jumping Instructor for g Fwd Diagnoses Acute combined systolic (congestive) and diastolic (congestive) heart failure I50.41 Acute renal failure N17.9 Lactic acidosis E87.2 Coronary artery disease I25.10 Coronary Disease-Associated Artery/Lesion type: [place] artery [place] vs. transplanted heart: [place] heart Associated angina: without angina Dyslipidemia E78.5 Hypertension I10 Peripheral arterial disease I73.9
[2021-01-07 17:11] LABS: Glucose Point of Care 79 mg/dL (70-110)
[2021-01-07 21:15] LABS: Glucose Point of Care 225 mg/dL (70-110)
[2021-01-07] MEDS: atorvastatin 40 mg Tablet PO (22:06)
[2021-01-08 03:13] VITALS: BP 99/63; PULSE 92; RESP 16; TEMP 36.3; O2SAT 98
[2021-01-08] MEDS: metOLazone 5 MG Tablet PO (05:30)
[2021-01-08] MEDS: bumetanide 0.25 mg/mL SDV 10 mL 2 MG IV (05:36)
[2021-01-08 06:00] VITALS: PULSE 93
[2021-01-08 06:15] LABS: Anion Gap 15.9 (5-19); Blood Urea Nitrogen 35 mg/dL (8-23); Calcium 8.6 mg/dL (8.5-10.5); Carbon Dioxide 33 mmol/L (22-29); Chloride 88 mmol/L (98-107); Glomerular Filtration Rate 55.6 mL/min (90-130); Glucose 114 mg/dL (65-115); Osmolality Calculated 285 mOsm/kg (285-295); Potassium 3.9 mmol/L (3.5-5.1); Sodium 133 mmol/L (136-145)
[2021-01-08 06:17] LABS: Glucose Point of Care 124 mg/dL (70-110)
[2021-01-08 07:22] VITALS: BP 95/67; PULSE 88; RESP 18; TEMP 36.6; O2SAT 96
[2021-01-08] MEDS: pantoprazole DR 40 mg Tablet PO (07:52)
[2021-01-08] MEDS: spironolactone 25 mg Tablet PO (07:52)
--- NOTE | 2021-01-08 10:22 | PM.DCS ---
Discharge Providers Date of Admission: 01/04/21 16:53 Date of Discharge: January 08, 2021 Attending Provider at Admission: Ilene Block Attending Provider at Discharge: Bonilla Haynes DO Primary Care Provider: Akiko Aranda Diagnoses at Discharge Discharge Diagnosis (1) Acute combined systolic (congestive) and diastolic (congestive) heart failure: Status: Acute (2) Acute renal failure: Status: Acute (3) Lactic acidosis: Status: Acute (4) Coronary artery disease: Status: Acute Qualifiers: Coronary Disease-Associated Artery/Lesion type: [place] artery [place] vs. transplanted heart: [place] heart Associated angina: without angina Qualified Code(s): I25.10 - Atherosclerotic heart disease of [place] coronary artery without angina pectoris (5) Dyslipidemia: Status: Acute (6) Hypertension: Status: Acute (7) Peripheral arterial disease: Status: Acute Reason for Visit Reason for Visit: Weakness, Edema, Stomach Pains, Dark Stool Hospital Course Hospital Course Patient presented to the emergency room with nausea and possible melena. Patient reports increasing leg swelling into groin and probably in the stomach area. Patient did note that he normally weighs 182 pounds and he went up to 206 pounds. He was found to be in acute on chronic systolic and diastolic heart failure. He was started on Lasix IV. When I saw the patient on January 05 he was not sufficiently diuresed at that point. I increased his Lasix dose. The next day I had to add or change to Bumex as well as adding a Zaroxolyn dose. Over the subsequent couple of days the patient was able to diuresed 2 to 2.5 L a day. His appetite increased and he was able to tolerate diet. On January 08 the day of discharge patient's edema was gone in his abdomen and thighs he remained with edema in his lower extremities right greater than left. His appetite had returned to normal vital signs were stable his potassium and magnesium were stable. We reviewed discharge instructions twice with his present. He will change to Bumex 2 mg p.o. twice a day until his weight returns to 182-185. When this goal is reached he can decrease to Bumex 1 mg p.o. twice a day. I anticipate this to be around Tuesday. On Tuesday he will have a Chem-7 and follow-up with his provider Akiko Aranda. Actos needed to be discontinued due to contraindication with his degree of CHF. Will leave medication adjustments to primary. Physical Exam Narrative: EXAM NARRATIVE: Gen: a and o times 3, NAD H: reg without sign murmur, click gallop or rub L diminished throughout, a few crackles right base; more atelectasis sounding A no edema, soft, nt/nd nl BS E: 2-3+ edema b/l lower ext - Thighs even thinner today, pt says his thighs are normal now. MUCH improved. negative another 2 L Discharge Data Data Completed and Pending: Completed Studies During Hospitalization Category Date Time Status CT abdomen pelvis wo con [id number] Stat Cat Scan 01/04/21 19:08 Completed XR chest 1V debbie ble [id number] Urgent Exams 01/04/21 14:51 Completed Pending at discharge Category Date Time Status Basic Metabolic P jenna AM LABS Lab 01/09/21 04:00 Ordered Basic Metabolic P jenna AM LABS Lab 01/10/21 04:00 Ordered Labs from last 24 hours 01/08/21 01/08/21 01/07/21 06:05 05:17 21:05 Sodium 133 L Potassium 3.9 Chloride 88 L Carbon Dioxide 33 H Anion Gap 15.9 BUN 35 H Creatinine 1.3 H GFR Calculation 55.6 L Glucose 114 POC Glucose 124 H 225 H Calculated Osmolal ity 285 Calcium 8.6 Magnesium 01/07/21 01/07/21 01/07/21 17:04 11:28 10:28 Sodium 132 L Potassium 4.3 Chloride 88 L Carbon Dioxide 34 H Anion Gap 14.3 BUN 31 H Creatinine 1.2 GFR Calculation 61.0 L Glucose 158 H POC Glucose 79 221 H Calculated Osmolal ity 284 L Calcium 9.2 Magnesium 2.1 Vitals: Last Vital Signs Temp 97.8 F 01/08/21 07:22 Pulse 88 01/08/21 07:22 Resp 18 01/08/21 07:22 BP 95/67 01/08/21 07:22 Pulse Ox 96 01/08/21 07:22 Discharge Plan Discharge Patient Disposition: Home Condition: Stable Prescriptions: New bumetanide 1 mg tablet 1 mg PO BID Qty: 60 RF: 0 Continued atorvastatin 40 mg Tablet 40 mg PO BEDTIME@2000 RF: 0 Jardiance 25 mg Tablet 25 mg PO DAILY@0900 RF: 0 Trulicity 1.5 mg SUBCUT Q7D RF: 0 albuterol sulfate 2.5 mg /3 mL (0.083 %) solution for nebulization See Rx Instructions .ROUTE .COMPLEX RF: 0 PreserVision AREDS-2 250-90-40-1 mg Capsule 1 tab PO BID@00,1999 RF: 0 clopidogrel 75 mg tablet 75 mg PO DAILY@0900 RF: 0 Adult Aspirin Regimen 81 mg tablet,delayed release (DR/EC) 81 mg PO DAILY@0900 RF: 0 spironolactone 25 mg tablet 25 mg PO DAILY@0900 RF: 0 pantoprazole 40 mg tablet,delayed release (DR/EC) 40 mg PO DAILY@0900 RF: 0 metformin 500 mg Tablet Extended Release 24 Hr 1,000 mg PO BID@899,1999 RF: 0 omega 6-flo-ekp-fish oil [Fish Oil] 1,200 (144-216) mg Capsule 1 cap PO BID@899,1999 RF: 0 Cinnamon 1 cap PO DAILY@0900 RF: 0 Discontinued pioglitazone [Actos] 30 mg Tablet 30 mg PO DAILY RF: 0 furosemide 40 mg tablet 40 mg PO DAILY@0900 RF: 0 Discharge Orders: Discharge Order (Routine); Ordered 01/08/21 Ordered By: Bonilla Haynes Other Ambulatory Orders: Basic Metabolic Panel (Routine) Timeframe: 20210112 Facility: [facility] [place] - Location: Lab - Main Lab Ordered By: Bonilla Haynes Referrals: Akiko Aranda PA [Primary Care Provider] - Discharge Diet: Usual diet Discharge Activity: Increase activity as tolerated Patient Instructions: Opioid Safety Activity Restrictions/Additional Instructions: Take bumex 2 tabs twice a day until goal weight of 182-185 lbs, then decrease to 1 tab twice a day. Discuss with your provider about maintainence dose. STOP ACTOS - contraindicated in congestive heart failure Weigh daily. if gain >2 lbs in a day double dose of bumex and call provider. Maintain fluid restriction of less than 2 liters a day Discharge Attestations Time Spent in Discharge Care*: greater than 30 min Specific Discharge Activities: educating patient, educating and/or supporting family/caregiver and documenting/other paperwork Quality Metrics Clinical Quality Measures During this hospital stay, did patient experience: None Coding Level of Care Code Acute Chg FW DC note Diagnoses Acute combined systolic (congestive) and diastolic (congestive) heart failure I50.41 Acute renal failure N17.9 Lactic acidosis E87.2 Coronary artery disease I25.10 Coronary Disease-Associated Artery/Lesion type: [place] artery [place] vs. transplanted heart: [place] heart Associated angina: without angina Dyslipidemia E78.5 Hypertension I10 Peripheral arterial disease I73.9
[2021-01-08 11:12] LABS: Glucose Point of Care 216 mg/dL (70-110)
[2021-01-08 11:51] VITALS: BP 99/64; PULSE 93; RESP 18; TEMP 36.6; O2SAT 95
--- NOTE | 2021-01-08 12:00 | PC.NURSE ---
IV removed at this time. Reviewed discharge instructions with patient and at bedside. Patient and verbalize understanding of discharge instructions including follow up appointments and changes to his medications. Patient is A&Ox3. Respirations even and non-labored on room air. Patient ambulate to his private car at this time.
[2021-01-08 12:29] VITALS: BP 99/64; PULSE 93; RESP 18; TEMP 36.6; O2SAT 95
== END 2021-01-08 12:00 | disposition home or self-care (01) | DRG 292 ==
LOC: ER 17:27 → MEDSURG 17:40
PROVIDERS: Admitting Provider Hospitalist; Emergency Provider Family Medicine; PCP Physician Assistant; Visit Provider Internal Medicine
DX: I11.0 Hypertensive heart disease with heart failure (principal); R18.8 Other ascites; N17.9 Acute kidney failure, unspecified; E87.2 Acidosis; I50.43 Acute on chronic combined systolic (congestive) and diastolic (congestive) heart failure; E78.5 Hyperlipidemia, unspecified; E11.51 Type 2 diabetes mellitus with diabetic peripheral angiopathy without gangrene; I25.10 Atherosclerotic heart disease of native coronary artery without angina pectoris; Z95.5 Presence of coronary angioplasty implant and graft; K57.30 Diverticulosis of large intestine without perforation or abscess without bleeding; K80.80 Other cholelithiasis without obstruction; F17.210 Nicotine dependence, cigarettes, uncomplicated; Z79.02 Long term (current) use of antithrombotics/antiplatelets; Z79.84 Long term (current) use of oral hypoglycemic drugs; Z79.82 Long term (current) use of aspirin
CPT/HCPCS: 36415; 36416; 71045; 74176; 80048; 80053; 81003; 82962; 83605; 83690; 83735; 83880; 84484; 85025; 93005; 96372; 96374; 97161; 97530; 99285; J1815; J1940; J3490; Q9967